=== PATIENT | female | born 1945 | race Caucasian/White ===

== ENCOUNTER 2021-07-24 15:20 | Outpatient (CLI) | payer MEDICARE, SELFPAY ==
--- NOTE | ~2021-07-24 | DEXA_ITS ---
Bone Density Report Name: RANDAL HANSON Age: 75 Sex: Female Ethnicity: White Date of : 1945 Indication: osteopenia; parental hip fracture; height loss; cancer; postmenopausal Referring Provider: ADDIE NUNEZ Study: Bone densitometry was performed. Exam Date: July 24, 2021 Accession number: [id number] Bone Density: Region BMD T-score Z-score Classification Femoral Neck (Left) 0.607 -2.2 0.0 Osteopenia Total Hip (Left) 0.765 -1.5 0.5 Osteopenia Femoral Neck (Right) 0.643 -1.9 0.3 Osteopenia Total Hip (Right) 0.815 -1.0 0.9 Normal Total Hip Mean 0.790 -1.3 0.7 Osteopenia World Health Organization criteria for BMD impression classify patients as: Normal (T-score at or above -1.0), Osteopenia (T-score between -1.0 and -2.5), or Osteoporosis (T-score at or below -2.5). 10-year Fracture Risk(1): Major Osteoporotic Fracture 26% Hip Fracture 17% Reported Risk Factors: [place] (), Neck BMD=0.607, BMI=20.8, parental fracture (1) FRAX(R) Version 3.08. Fracture probability calculated for an untreated patient. Fracture probability may be lower if the patient has received treatment. Previous Exams: Region Exam Age BMD T-score BMD Change BMD Change Date g/cm2 vs Baseline vs Previous Total Hip(Left) 07/24/2021 75 0.765 -1.5 -0.014 (-1.7%) -0.049 (-6.0%) 06/25/2016 70 0.814 -1.1 0.036 (4.6%)* 0.036 (4.6%)* 10/15/2013 67 0.778 -1.3 Total Hip(Right) 07/24/2021 75 0.815 -1.0 -0.054 (-6.2%) -0.081 (-9.1%) 06/25/2016 70 0.896 -0.4 0.027 (3.1%) 0.027 (3.1%) 10/15/2013 67 0.869 -0.6 *Denotes significance at 95% confidence level, LSC for Total Hip = 0.027 g/cm2 Clinical Information Provided by Patient: Parent has had a hip fracture Has used the following medications: Vitamin D, Calcium Has the following medical conditions: Cancer Patient maximum height was 61 Menopause Age: 48 No regular weight bearing exercise Drinks caffeinated beverages Onset of menses at age 12 Number of children 2 Impression: The patient has low bone mass, based on the Left Femoral Neck T-score. The patient has an estimated ten-year risk of hip fracture of 17% and an estimated ten-year risk of major fracture of 26%, based on the WHO FRAX algorithm. The patient has risk factors, including: parental hip fracture. The BMD for the Total Hip(Left) decreased, changing by -6.0% since the last DXA exam. The BMD for the Total Hip(Right) decreased, changing by -9.1% since
== END 2021-07-24 15:21 | disposition home or self-care (01) ==
PROVIDERS: PCP Family Medicine; Visit Provider Family Medicine
DX: M81.0 Age-related osteoporosis without current pathological fracture (principal); M85.852 Other specified disorders of bone density and structure, left thigh; M85.851 Other specified disorders of bone density and structure, right thigh
CPT/HCPCS: 77080

== ENCOUNTER 2021-11-13 15:29 | Outpatient (CLI) | payer MEDICARE, SELFPAY ==
[2021-11-13 20:15] LABS: Alanine Aminotransferase 19 U/L (6-35); Albumin Level 4.3 g/dL (3.5-5.1); Alkaline Phosphatase 98 U/L (38-126); Anion Gap 7 mmol/L (8-16); Aspartate Amino Transferase 35 U/L (14-36); Bilirubin,Total 0.5 mg/dL (0.2-1.3); Blood Urea Nitrogen 15 mg/dL (7-17); Calcium 9.5 mg/dL (8.4-10.2); Carbon Dioxide 27 mmol/L (22-30); Chloride 93 mmol/L (98-107); Estimated Glomerular Filt Rate > 60; Glucose 92 mg/dL (65-110); Potassium 5.2 mmol/L (3.4-5.0); Sodium 127 mmol/L (137-145)
[2021-11-13 21:08] LABS: Basophils Percent Auto 0.6 % (0.2-1.2); Eosinophils Absolute Auto 0.4 K/mm3 (0-0.3); Eosinophils Percent Auto 5.2 % (0-4.4); Hematocrit 34.9 % (37.0-47.0); Immature Granulocyte Absolute 0.02 K/mm3 (0.00-0.031); Immature Granulocyte Percent A 0.3 % (0-0.5); Lymphocytes Absolute Auto 3.12 K/mm3 (0.9-3.2); Lymphocytes Percent Auto 44.1 % (18.3-44.2); Mean Corpuscular HGB Conc 34.4 g/dl (32-36); Mean Corpuscular Hemoglobin 31.3 pg (26-34); Mean Corpuscular Volume 91.1 fl (80-100); Mean Platelet Volume 9.7 fl (7.4-10.4); Monocytes Absolute Auto 0.7 K/mm3 (0.1-0.6); Monocytes Percent Auto 9.8 % (2.6-8.5); Neutrophils Absolute Auto 2.8 K/mm3 (1.3-6.7); Platelet Count Result 230 k/mm3 (150-375); Red Blood Count 3.83 M/mm3 (4.2-5.4); Red Cell Distribution Width 14.3 % (11.5-14.5); White Blood Count 7.1 K/mm3 (4.5-10.0)
[2021-11-13 21:14] LABS: Vitamin B12 > 1000.0 pg/mL (239-931)
== END 2021-11-13 15:30 | disposition home or self-care (01) ==
LOC: ANHGOSHLAB 15:31
PROVIDERS: PCP Family Medicine; Visit Provider Family Medicine
DX: G25.81 Restless legs syndrome (principal); E03.9 Hypothyroidism, unspecified; D64.9 Anemia, unspecified
CPT/HCPCS: 36415; 80053; 82607; 84443; 85025

== ENCOUNTER 2022-08-20 13:49 | Outpatient (CLI) | payer MEDICARE, SELFPAY ==
[2022-08-20 19:23] LABS: Anion Gap 5 mmol/L (8-16); Blood Urea Nitrogen 16 mg/dL (7-17); Calcium 9.1 mg/dL (8.4-10.2); Carbon Dioxide 28 mmol/L (22-30); Chloride 95 mmol/L (98-107); Estimated Glomerular Filt Rate > 60; Glucose 100 mg/dL (65-110); Potassium 4.8 mmol/L (3.4-5.0); Sodium 128 mmol/L (137-145)
[2022-08-20 19:50] LABS: Thyroid Stimulating Hormone 0.209 uIU/mL (0.465-4.680)
== END 2022-08-20 13:50 | disposition home or self-care (01) ==
LOC: ANHGOSHLAB 13:50
PROVIDERS: PCP Family Medicine; Visit Provider Family Medicine
DX: E03.9 Hypothyroidism, unspecified (principal); E87.1 Hypo-osmolality and hyponatremia
CPT/HCPCS: 36415; 80048; 84443

== ENCOUNTER 2022-12-28 19:00 | Outpatient (NON) | payer MEDICARE, SELFPAY | END 2022-12-28 19:01 | disposition home or self-care (01) | LOC: ANHGOSHLAB 19:03 | PROVIDERS: PCP Family Medicine; Visit Provider Nurse Practitioner Family | DX: R39.9 Unspecified symptoms and signs involving the genitourinary system (principal) | CPT/HCPCS: 87086; 87088 ==

== ENCOUNTER 2023-04-16 00:57 | Day surgery (SDC) | payer MEDICARE, SELFPAY ==
[2023-03-29 10:17] VITALS: BMI 23.1
--- NOTE | 2023-04-12 13:58 | SUR.PREOP ---
Patient called regarding upcoming procedure. Reviewed preop instructions, appointment times, and procedure prep.
[2023-04-16 07:44] VITALS: BP 140/87; PULSE 100; RESP 16; TEMP 35.8; O2SAT 100; BMI 22.1
[2023-04-16] MEDS: LACTATED RINGERS 1,000 ML 150 ML IV CONT (08:02)
--- NOTE | 2023-04-16 09:43 | PM.HPGS ---
History of Present Illness History of Present Illness Consent: Risks, benefits, and alternatives have been discussed and questions answered. Patient agrees to proceed with procedure. Chief complaint: neoplasm screening Narrative: Marissa Hightower is a 77 year old female here for screening colonoscopy, last one in 2011 Review of Systems Constitutional: Constitutional: Denies headache(s) and Denies weakness Eyes: Eyes: Denies blurry vision ENT: Reports Normal hearing present, Denies headache(s) and Denies neck pain Cardiovascular: Cardiovascular: Denies chest pain and Denies dyspnea Respiratory: Respiratory: Denies dyspnea Gastrointestinal: Gastrointestinal: Reports no additional gastrointestinal complaints Genitourinary: Genitourinary: Denies dysuria Musculoskeletal: Musculoskeletal: Denies neck pain Integumentary/Breasts: Skin/Breast: Denies dry skin Neurologic: Reports Normal hearing present, Denies headache(s) and Denies weakness Psychiatric: Psychiatric: Denies anxiety Endocrine: Endocrine: Denies change in body appearance Hematologic/Lymphatic: Hematologic/Lymphatic: Denies easy bleeding Allergic/Immunologic: Allergic/Immunologic: Denies urticaria PMFSH Past Medical History Medical History (Reviewed 12/24/22 @ 14: by Shalonda Valdes MA) Age-related osteoporosis without current pathological fracture Anemia, Mediterranean Chemotherapy-induced neuropathy Depression Emphysema, unspecified Essential (primary) hypertension Hyperlipidemia, unspecified Hypothyroidism (acquired) Latex allergy status Major depressive disorder, single episode, unspecified Malignant neoplasm of upper lobe, left bronchus or lung Nicotine dependence, unspecified, in remission Papillomavirus as the cause of diseases classified elsewhere Tension-type headache, unspecified, not intractable Unspecified osteoarthritis, unspecified site Family History Family History (Reviewed 12/24/22 @ 14: by Shalonda Valdes MA) Father Family history of glaucoma Family history of aortic aneurysm Family history of dementia Mother Family history of elevated blood lipids Family history of dementia Sibling Family history of cardiovascular disease Family history of malignant neoplasm of breast in first degree relative Other Family history of malignant neoplasm of breast Social History Social History (Reviewed 12/24/22 @ 14: by Shalonda Valdes MA) Smoking packs per day: 1 Smoking cigarettes per day: 20.0 Years smoked: 38 Smoking pack-years: 38.00 Smoking status: Former smoker Tobacco type: cigarettes Smoking end date: 02/12/96 Alcohol intake: current Drinks per week: 6 Alcohol use details: BEER Substance use: never Substance use type: does not use Lack of Transportation: No Lack of Food: Never True Current Housing: I Have Housing Concerned About Future Housing: No Difficulty Paying Gas/Electric Bills: No Difficulty Paying for Meds: No Currently Unemployed: No Education: High School Diploma/GED Difficulty w/ Childcare or Family Care: No Living arrangements: with family Spiritual care concerns: No Meds Home Medications and Allergies Home Medications Medication Instructions Recorded Confirmed Type calcium carbonate 600 mg-vitamin 1 tablet PO BID 04/27/20 04/16/23 History D3 20 mcg (800 unit) chewable tablet (Caltrate 600 plus D) sertraline 100 mg tablet See Rx Instructions .Route 09/25/22 04/16/23 Rx .COMPLEX #90 tabs hydrocodone 5 mg-acetaminophen 325 1 tablet PO Q6H PRN pain #30 tabs 12/24/22 04/16/23 Rx mg tablet levothyroxine 100 mcg tablet 100 mcg PO DAILY #30 tabs 02/06/23 04/16/23 Rx (Synthroid) gabapentin 300 mg capsule 300 mg PO BID #180 caps 03/12/23 04/16/23 Rx ropinirole 0.25 mg tablet 0.25 mg PO QHS #90 tabs 03/12/23 04/16/23 Rx One Daily Women's 1 tab-cap PO DAILY 03/29/23 04/16/23 History mecobalamin (vitamin B12) 1,000 1,000
[2023-04-16 10:06] VITALS: BP 96/52; PULSE 62; RESP 14; O2SAT 100
[2023-04-16 10:16] VITALS: BP 124/65; PULSE 61; RESP 23; O2SAT 100
[2023-04-16 10:26] VITALS: BP 138/84; PULSE 62; RESP 17; O2SAT 100
--- NOTE | 2023-04-17 12:58 | WPDANESEPPF ---
Anes - Initial Pre Proc Eval Procedure: Operation Date: 04/16/23 09:00 Proposed Procedures p Colonoscopy - Hermes Presley MD Date/Time: 04/17/23 12:58 Surgeon: Hermes Presley MD Pre Op Diagnosis: neoplasm screening Patient Data Age: 77 Gender: F Height: 1.5 m Weight: 49.7 kg Last Vital Signs Temp 96.5 F L 04/16/23 07:44 Pulse 62 04/16/23 10:26 Resp 17 04/16/23 10:26 BP 138/84 04/16/23 10:26 Pulse Ox 100 04/16/23 10:26 O2 Del Method Room Air 04/16/23 10:26 Allergies Allergy/AdvReac Type Severity Reaction Status Date / Time Iodinated Contrast Media Allergy Intermediate vasculitis Verified 04/16/23 07:51 latex Allergy Intermediate Rash Verified 04/16/23 07:51 nitrofurantoin Allergy Intermediate Chills Verified 04/16/23 07:51 valacyclovir [From Valtrex] Allergy Intermediate angioedema Verified 04/16/23 07:51 Home Medications Medication Instructions Recorded Confirmed Type calcium carbonate 600 mg-vitamin 1 tablet PO BID 04/27/20 04/16/23 History D3 20 mcg (800 unit) chewable tablet (Caltrate 600 plus D) sertraline 100 mg tablet See Rx Instructions .Route 09/25/22 04/16/23 Rx .COMPLEX #90 tabs hydrocodone 5 mg-acetaminophen 325 1 tablet PO Q6H PRN pain #30 tabs 12/24/22 04/16/23 Rx mg tablet levothyroxine 100 mcg tablet 100 mcg PO DAILY #30 tabs 02/06/23 04/16/23 Rx (Synthroid) gabapentin 300 mg capsule 300 mg PO BID #180 caps 03/12/23 04/16/23 Rx ropinirole 0.25 mg tablet 0.25 mg PO QHS #90 tabs 03/12/23 04/16/23 Rx One Daily Women's 1 tab-cap PO DAILY 03/29/23 04/16/23 History mecobalamin (vitamin B12) 1,000 1,000 mcg PO DAILY 03/29/23 04/16/23 History mcg chewable tablet Patient hx anesthesia problems: none Family hx anesthesia problems: none Results Review: All pre-operative results and documents have been reviewed as part of the pre-operative evaluation. [facility] Past Medical History Medical History Age-related osteoporosis without current pathological fracture Anemia, Mediterranean Chemotherapy-induced neuropathy Depression Emphysema, unspecified Essential (primary) hypertension Hyperlipidemia, unspecified Hypothyroidism (acquired) Latex allergy status Major depressive disorder, single episode, unspecified Malignant neoplasm of upper lobe, left bronchus or lung Nicotine dependence, unspecified, in remission Papillomavirus as the cause of diseases classified elsewhere Tension-type headache, unspecified, not intractable Unspecified osteoarthritis, unspecified site Family History Family History (Reviewed 12/24/22 @ 14: by Shalonda Valdes MA) Father Family history of glaucoma Family history of aortic aneurysm Family history of dementia Mother Family history of elevated blood lipids Family history of dementia Sibling Family history of cardiovascular disease Family history of malignant neoplasm of breast in first degree relative Other Family history of malignant neoplasm of breast Social History Social History Smoking packs per day: 1 Smoking cigarettes per day: 20.0 Years smoked: 38 Smoking pack-years: 38.00 Smoking status: Former smoker Tobacco type: cigarettes Smoking end date: 02/12/96 Alcohol intake: current Drinks per week: 6 Alcohol use details: BEER Substance use: never Substance use type: does not use Lack of Transportation: No Lack of Food: Never True Current Housing: I Have Housing Concerned About Future Housing: No Difficulty Paying Gas/Electric Bills: No Difficulty Paying for Meds: No Currently Unemployed: No Education: High School Diploma/GED Difficulty w/ Childcare or Family Care: No Living arrangements: with family Spiritual care concerns: No Anes - Eval Final PreProcedure Day of Procedure 04/17/23 12:58 Patient weight: norm
== END 2023-04-16 10:33 | disposition home or self-care (01) ==
PROVIDERS: PCP Family Medicine; Visit Provider Internal Medicine Gastroenterology
PROC: 0DJD8ZZ Inspection of Lower Intestinal Tract, Via Natural or Artificial Opening Endoscopic (ICD-10-PCS; CPT 45378; principal; 2023-04-16 09:00)
DX: Z12.11 Encounter for screening for malignant neoplasm of colon (principal); K64.8 Other hemorrhoids; E03.9 Hypothyroidism, unspecified; F32.9 Major depressive disorder, single episode, unspecified; E78.5 Hyperlipidemia, unspecified; M81.0 Age-related osteoporosis without current pathological fracture; Z87.891 Personal history of nicotine dependence; Z79.891 Long term (current) use of opiate analgesic
CPT/HCPCS: G0121; J2704; J7120

== ENCOUNTER 2023-07-27 00:46 | Observation (INO) | payer MEDICARE, SELFPAY ==
[2023-07-27] VITALS (19 sets, daily range): BP systolic 117–155; BP diastolic 56–85; PULSE 58–76; RESP 15–21; TEMP 36.3–37.2; O2SAT 95–100; BMI 23.5
--- NOTE | 2023-07-27 | ECHO_ITS ---
Patient Info Name: Marissa Hightower Age: 77 years : 1945 Gender: Female Ht: 59 in Wt: 119 lbs BSA: 1.51 m2 HR: 62 bpm BP: 151 / 69 mmHg Technical Quality: Good Exam Date: 07/27/2023 11:10 AM Exam Location: Echo Lab Patient Status: Inpatient Admit Date: 07/27/2023 Staff Ordering Physician: Amalia Voss APRN Nurse College: Benedicto Alas RDCS Attending Provider: Caleb Mackey MD Referring Physician: Bipin STRANGE; Exam Type: CA echo doppler w bubble study Study Info Indications - syncope Complete two-dimensional, color flow and Doppler transthoracic echocardiogram is performed with agitated saline. Contrast/Agitated Saline Contrast/Ag. Saline: Agitated Saline Amount: 20.00 ml Existing IV Access: Yes IV Access Condition: patent with no signs of infiltration Summary 1. Left ventricular chamber dimension is normal. 2. Left ventricular systolic function is normal, estimated at 60-65%. 3. The left ventricular diastolic function is abnormal. 4. E/e' 11 is mildly elevated. 5. There is mild aortic valve sclerosis. 6. There is trace aortic valve regurgitation. 7. There is trace tricuspid valve regurgitation. 8. Mild pulmonary hypertension, estimated pulmonary arterial systolic pressure is 41 mmHg. Left Ventricle E/e' 11 is mildly elevated. Left ventricular chamber dimension is normal. Left ventricular systolic function is normal, estimated at 60-65%. The left ventricular diastolic function is abnormal. Right Ventricle Right ventricular systolic function is normal and with normal TAPSE 1.8 cm. Right ventricular chamber dimension is normal. Left Atria Left atrial chamber dimension is normal. Right Atria Right atrial chamber dimension is normal. Atrial Septum Agitated saline injection with and without valsalva maneuver opacified right side cardiac chambers without shunt to left side cardiac chambers. Intact interatrial septum visualized by 2D and agitated saline imaging. Aortic Valve The aortic valve is trileaflet. There is mild aortic valve sclerosis. There is no aortic valve stenosis. There is trace aortic valve regurgitation. Pulmonic Valve There is no pulmonic regurgitation. Mitral Valve There is no mitral valve stenosis. There is no mitral valve regurgitation. Tricuspid Valve There is trace tricuspid valve regurgitation. Mild pulmonary hypertension, estimated pulmonary arterial systolic pressure is 41 mmHg. Pericardium/Pleural There is no pericardial effusion. Inferior Vena Cava Normal inferior vena cava with >50% collapse upon inspiration consistent with normal right atrial pressure, 5 mmHg. Aorta The aortic root size at the sinus of Valsalva is normal. Left Ventricular Outflow Tract Name Value Normal LVOT 2D LVOT Diameter 1.9 cm LVOT Doppler LVOT Peak Gradient 6 mmHg LVOT Mean Gradient 3 mmHg LVOT VTI 26 cm LVOT VTI/AV VTI Ratio 0.8 LVOT Stroke Volume 77 ml LVOT CO 4.3 l/min LVOT CI
--- NOTE | ~2023-07-27 | CT_ITS ---
EXAMINATION: CTA brain carotid DATE: 07/29/2023 01:39 INDICATION: Syncope. TECHNIQUE: Computed tomographic angiography (CTA) of the head was performed without and with 100 mL O [id number] intravenous contrast. CTA of the neck was performed with intravenous contrast. Automated exposure control and iterative reconstruction technique were employed. The dose-length product was 1 487.70 mGy-cm. Maximum intensity projection and volume rendered 3D-reconstructions were created by demetrius connolly technologist on a separate workstation. COMPARISON: Head CT 07/27/2023 FINDINGS: HEAD CTA: There is a small old infarct in right cerebellum. There is an old infarct in the left front al lobe. There is an old infarct in left parietal lobe. There are scattered areas of low attenuation in the cerebral white matter. There is no intracranial hemorrhage, acute infarction, or abnormal intr acranial mass lesion. The ventricles are normal in size. There is mild mucosal thickening in the para nasal sinuses. There are small bilateral mastoid effusions. There are likely changes of ocular lens r eplacement surgeries. The left vertebral artery is dominant. There is no significant stenosis of basi lar artery or the posterior cerebral arteries. There is no significant stenosis of the intracranial i nternal carotid arteries or anterior or middle cerebral arteries. Anterior communicating artery is no rmal. The posterior communicating arteries are normal. There is no aneurysm. NECK CTA: Emphysema is noted. There are no pathologically enlarged lymph nodes. There is moderate eileen nosis of proximal left vertebral artery. There is plaque in the proximal internal carotid arteries. T here is 0% stenosis of the proximal right internal carotid artery relative to normal distal artery sarah men diameter (NASCET criteria). There is 0% stenosis of the proximal left internal carotid artery rel ative to normal distal artery lumen diameter. There is severe cervical spondylosis. There are changes of posterior fusion procedure from C2 to T2. There are healing/healed fractures of the spinous proce sses of C7, T1, and T2. There is a healing fracture of right second rib. IMPRESSION: 1. 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 2. Mild nonspecific cerebral white matter disease, which likely represents chronic small vessel [place] disease. 3. No aneurysm or significant intracranial arterial stenosis. 4. 0% stenosis of the proximal internal carotid arteries relative to normal distal artery lumen diame ters (NASCET criteria). Reviewed, dictated and finalized at location E. IMPRESSION: 1. Old infarcts in the right cerebellum, left frontal lobe, and left parietal l obe. 2. 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 3. No aneurysm or significant intracranial arterial stenosis. 4. 0% stenosis of the proximal internal carotid arteries relative to normal dis faustina artery lumen diameters (NASCET criteria).
--- NOTE | ~2023-07-27 | MR_ITS ---
EXAMINATION: MR brain/brain stem wo con DATE: 07/27/2023 13:08 INDICATION: Stroke with unresponsiveness syncopal episode and drowsiness TECHNIQUE: Magnetic resonance imaging (MRI) of the brain and brainstem was performed without intraven ous contrast. Sequences included sagittal and axial T1-weighted SE, axial diffusion-weighted FS SE, a xial T2*-weighted GRE, axial T2-weighted FLAIR, and axial T2-weighted FSE. Postcontrast axial and cor onal T1-weighted SE was obtained. Apparent diffusion coefficient (ADC) maps were created. COMPARISON: CT dated 07/27/2023 FINDINGS: Magnetic field artifact at the posterior craniocervical junction likely related to an instrumented ce rvical posterior spinal fusion. Small region of encephalomalacia in the left frontal lobe consistent with chronic infarct. There are no areas of restricted diffusion to suggest acute infarction. No intr acranial hemorrhage or abnormal intracranial mass lesion. There are scattered areas of nonspecific in creased T2-weighted signal intensity in the cerebral white matter, predominantly involving the deep a nd periventricular white matter. There are no intraparenchymal signal abnormalities seen on the other pulse sequences. The ventricles are symmetric and normal in size. There are no abnormal extra-axial fluid collections. Flow voids are seen in the cerebral arteries on the T2-weighted sequences consiste nt with their expected patency. Changes of bilateral intraocular lens replacement. Mucosal thickening in the paranasal sinuses, moderate in the left maxillary sinus and mild in the bilateral ethmoid sin uses. Visualized orbits and soft tissues are unremarkable. IMPRESSION: 1. Small left frontal lobe infarct. No acute intracranial process. 2. Mild scattered nonspecific periventricular predominant white matter T2 hyperintensity which is wit hin normal limits for age and likely sequela of chronic small vessel ischemic disease. Reviewed, dictated and finalized at location A. IMPRESSION: 1. Small left frontal lobe infarct. No acute intracranial process. 2. Mild scattered nonspecific periventricular predominant white matter T2 hyper intensity which is within normal limits for age and likely sequela of chronic s mall vessel ischemic disease.
--- NOTE | ~2023-07-27 | XR_ITS ---
XR chest 1V portable DATE: 07/27/2023 05:42 INDICATION: Syncope TECHNIQUE: Portable upright AP chest on 07/27/2023 at 0538 hours COMPARISON: None FINDINGS: Normal heart size. There is extensive thoracic aortic calcification and thoracic aortic unf olding. No hilar or mediastinal enlargement is noted. No pulmonary consolidation, pulmonary vascular congestion, pleural effusion or pneumothorax is eviden t. Bilateral pedicle screws and rods are noted in the cervicothoracic area and lower thoracic and lumbar region. Thoracic dextroscoliosis. Suture anchors of left humeral head. Evidence of bilateral rotator cuff atrophy. Diffuse osteopenia. IMPRESSION: No active cardiopulmonary disease Aortic atherosclerosis Reviewed, dictated and finalized at location A.
--- NOTE | ~2023-07-27 | CT_ITS ---
EXAMINATION: CT brain wo con DATE: 07/27/2023 07:57 INDICATION: Unresponsive. Syncope. TECHNIQUE: Computed tomography (CT) of the head was performed without intravenous contrast. The mA wa s adjusted according to patient size. Iterative reconstruction technique was employed. Exam dose: 52 9.67 mGy-cm total exam DLP. COMPARISON: 02/10/2018 CT brain FINDINGS: There is hypoattenuation of the left frontal lobe which may be due to remote cerebrovascula r accident. Less likely consideration would be edema associated with a metastasis. Repeat examination with IV contrast material ureteral or MR brain examination would be helpful for differentiating thes e possibilities. Small chronic right cerebellar hemispheric infarct. No intracranial mass lesion or hemorrhage or recent cerebrovascular accident is evident. No subdural or epidural hematoma is detected. Bilateral carotid siphon internal carotid artery calcifications. There is nonspecific diminished atte nuation the cerebral white matter, likely due to chronic small vessel ischemic changes. No skull fracture. Mastoid air cells and included paranasal sinuses are unremarkable. IMPRESSION: Focal asymmetric diminished attenuation of the left frontal lobe which may be due to rem ote cerebrovascular accident; less likely would be edema, possibly associated with metastasis. Consid er further evaluation with CT examination with IV contrast material or MR brain scan as clinically ap propriate Small chronic right cerebellar hemispheric infarct Reviewed, dictated and finalized at Location A. Reviewed, dictated and finalized at location A. IMPRESSION: Focal asymmetric diminished attenuation of the left frontal lobe w hich may be due to remote cerebrovascular accident; less likely would be edema, possibly associated with metastasis. Consider further evaluation with CT exami nation with IV contrast material or MR brain scan as clinically appropriate Small chronic right cerebellar hemispheric infarct
--- NOTE | ~2023-07-27 | US_ITS ---
EXAMINATION: US carotid duplex BI DATE: 07/27/2023 09:02 INDICATION: Syncope TECHNIQUE: Grayscale, color Doppler, and pulsed Doppler images of the cervical carotid arteries were obtained. The degree of vessel stenosis is placed in one of the following categories: normal, <50%, 5 0-69%, >=70% but less than near-occlusion, near-occlusion, or total occlusion. Note that percent sten osis relative to normal distal artery lumen diameter is indirectly measured from velocity measurement s as described by Jeromy, et al. Radiology 2003; 229:340-346. COMPARISON: None. FINDINGS: RIGHT: The right common carotid artery (CCA) peak systolic velocity (PSV) is 72 cm/s. The right internal car otid artery (ICA) PSV is 59 cm/s. The right ICA end-diastolic velocity (EDV) is 19 cm/s. The right IC A/CCA PSV ratio is 0.8. Grayscale and color Doppler images yield an estimate of <50% diameter reducti on from plaque in the ICA. The external carotid artery (ECA) PSV is 47 cm/s. There is antegrade flow in the right vertebral artery. Bunny sign arterial waveform at the left vertebral artery which sugg ests a pre-subclavian steal hemodynamically significant stenosis at the more proximal right subclavia n artery. LEFT: The left CCA PSV is 78 cm/s. The left ICA PSV is 71 cm/s. The left ICA EDV is 22 cm/s. The left ICA/C CA PSV ratio is 0.9. Grayscale and color Doppler images yield an estimate of <50% diameter reduction from plaque in the ICA. The ECA PSV is 52 cm/s. There is antegrade flow in the left vertebral artery. IMPRESSION: 1. <50% stenosis in the right internal carotid artery. 2. <50% stenosis in the left internal carotid artery. 3. Left vertebral arterial waveform suggesting a pre-subclavian steal hemodynamically significant eileen nosis at the right subclavian artery. Correlate with bilateral brachial artery pressures in the consi susanna carotid CT angiogram for further evaluation. Reviewed, dictated and finalized at location A. IMPRESSION: 1. <50% stenosis in the right internal carotid artery. 2. <50% stenosis in the left internal carotid artery. 3. Left vertebral arterial waveform suggesting a pre-subclavian steal hemodynam ically significant stenosis at the right subclavian artery. Correlate with bila teral brachial artery pressures in the consider carotid CT angiogram for furthe r evaluation.
--- NOTE | 2023-07-27 01:20 | ECG_ITS ---
Test Date: 2023-07-27 00:53:35 Measurements Intervals [place] Rate: 75 P: 38 WA: 225 QRS: 16 QRSD: 80 T: 48 QT: 405 QTc: 454 Interpretive Statements SINUS RHYTHM WITH FIRST DEGREE AV BLOCK No previous ECG available for comparison Electronically Signed On 07-27-2023 15:40:10 CDT by Guero Bui M.D.
[2023-07-27 01:45] LABS: Basophils Percent Auto 0.3 % (0.2-1.2); Eosinophils Absolute Auto 0.2 K/mm3 (0-0.3); Hematocrit 34.9 % (37.0-47.0); Immature Granulocyte Absolute 0.03 K/mm3 (0.00-0.031); Immature Granulocyte Percent A 0.5 % (0-0.5); Lymphocytes Absolute Auto 1.16 K/mm3 (0.9-3.2); Lymphocytes Percent Auto 19.1 % (18.3-44.2); Mean Corpuscular HGB Conc 34.4 g/dl (32-36); Mean Corpuscular Hemoglobin 30.8 pg (26-34); Mean Corpuscular Volume 89.7 fl (80-100); Mean Platelet Volume 8.8 fl (7.4-10.4); Monocytes Absolute Auto 0.8 K/mm3 (0.1-0.6); Monocytes Percent Auto 12.3 % (2.6-8.5); Neutrophils Absolute Auto 3.9 K/mm3 (1.3-6.7); Neutrophils Percent Auto 64.8 % (45.5-73.1); Platelet Count Result 162 k/mm3 (150-375); Red Blood Count 3.89 M/mm3 (4.2-5.4); Red Cell Distribution Width 13.4 % (11.5-14.5); White Blood Count 6.1 K/mm3 (4.5-10.0)
[2023-07-27] MEDS: SODIUM CHLORIDE 0.9% IV 1,000 ML 999 ML IV CONT ×2 (01:53→06:06)
[2023-07-27 01:59] LABS: Alanine Aminotransferase 15 U/L (6-35); Albumin Level 4.2 g/dL (3.5-5.1); Alkaline Phosphatase 82 U/L (38-126); Anion Gap 6 mmol/L (4-12); Aspartate Amino Transferase 26 U/L (14-36); Bilirubin,Total 0.5 mg/dL (0.2-1.3); Blood Urea Nitrogen 12 mg/dL (7-17); Calcium 9.2 mg/dL (8.4-10.2); Carbon Dioxide 25 mmol/L (22-30); Chloride 98 mmol/L (98-107); Estimated Glomerular Filt Rate > 60; Glucose 93 mg/dL (65-110); Potassium 3.8 mmol/L (3.4-5.0); Sodium 129 mmol/L (137-145)
[2023-07-27 02:07] LABS: Lactic Acid Reflex 0.9 mmol/L (0.7-2.0)
[2023-07-27 02:15] LABS: Ethanol < 10 mg/dL (<10); Magnesium 1.8 mg/dL (1.6-2.3)
[2023-07-27 02:28] LABS: NT Pro B Type Natriuretic Pept 342 pg/mL (19.9-100); Troponin I < 0.012 ng/mL (0.000-0.034)
[2023-07-27 02:40] LABS: Influenza A QL RT-PCR Negative (Negative); Influenza B QL RT-PCR Negative (Negative); RSV RNA, RT-PCR Negative (Negative); SARS-CoV-2 RNA PCR Negative (Negative)
[2023-07-27 03:03] LABS: Appearance Urine Cloudy (Clear); Bacteria Urine 4+ /hpf; Bilirubin Urine Negative (Negative); Blood Urine Trace (Negative); Color Urine Yellow (Yellow); Glucose Urine UA Negative (Negative); Ketones Urine Negative (Negative); Leukocyte Esterase Ur 3+ LEU/UL (Negative); Need Manual Microscopic Reviewed; Nitrate Urine Positive (Negative); Non Pathogenic Casts 0-2; Protein Urine Negative (Negative); Specific Grav Ur 1.005 (1.001-1.035); Squamous Epithelial Cell Urine None Seen /hpf (Few); Urobilinogen Urine 0.2 mg/dL (<2.0); WBC Urine >100 /hpf (0-3)
[2023-07-27 03:04] LABS: Add Urine Microscopic? YES
--- NOTE | 2023-07-27 05:08 | ED.GENADULT ---
HPI - General Adult General Chief complaint: Arrhythmia/Palpitations Stated complaint: weakness Time Seen by Provider: 07/27/23 01:25 History of Present Illness HPI narrative: This is a 77-year-old female presenting after period of unresponsiveness. Patient spent the day out with her family. When she got home she took her nighttime doses of gabapentin and ropinirole. she was sitting in her arm chair and fell asleep. Her son tried to wake her up and he was unable to. At that time she was pale clammy and diaphoretic. After he was not able to arouse her he called EMS who found her to have a blood pressure of 60/40. A heart rate in the 40s. They gave the patient atropine and fluids with improvement in vital signs. Rhythm at that time was sinus bradycardia. At this time the patient says that she feels improved. She does not recall the events that led her arriving in the ED. she is denying fevers chills chest pain difficulty breathing or abdominal pain. She does note burning when she urinates. No palpitations lightheadedness. Related Data Home Medications Medication Instructions Recorded Confirmed calcium carbonate 600 mg-vitamin 1 tablet PO BID 04/27/20 06/27/23 D3 20 mcg (800 unit) chewable tablet (Caltrate 600 plus D) One Daily Women's 1 tab-cap PO DAILY 03/29/23 06/27/23 mecobalamin (vitamin B12) 1,000 1,000 mcg PO DAILY 03/29/23 06/27/23 mcg chewable tablet estradiol 0.01% (0.1 mg/gram) vaginal 04/29/23 06/27/23 vaginal cream Allergies Allergy/AdvReac Type Severity Reaction Status Date / Time Iodinated Contrast Media Allergy Intermediate vasculitis Verified 06/27/23 14:51 latex Allergy Intermediate Rash Verified 06/27/23 14:51 nitrofurantoin Allergy Intermediate Chills Verified 06/27/23 14:51 valacyclovir [From Valtrex] Allergy Intermediate angioedema Verified 06/27/23 14:51 [facility] Past Medical History Medical History Age-related osteoporosis without current pathological fracture Anemia, Mediterranean Chemotherapy-induced neuropathy Depression Emphysema, unspecified Essential (primary) hypertension Hyperlipidemia, unspecified Hypothyroidism (acquired) Latex allergy status Major depressive disorder, single episode, unspecified Malignant neoplasm of upper lobe, left bronchus or lung Nicotine dependence, unspecified, in remission Papillomavirus as the cause of diseases classified elsewhere Tension-type headache, unspecified, not intractable Unspecified osteoarthritis, unspecified site Family History Family History Father Family history of glaucoma Family history of aortic aneurysm Family history of dementia Mother Family history of elevated blood lipids Family history of dementia Sibling Family history of cardiovascular disease Family history of malignant neoplasm of breast in first degree relative Other Family history of malignant neoplasm of breast Social History Social History Smoking packs per day: 1 Smoking cigarettes per day: 20.0 Years smoked: 38 Smoking pack-years: 38.00 Smoking status: Former smoker Tobacco type: cigarettes Smoking end date: 02/12/96 Alcohol intake: current Drinks per week: 6 Alcohol use details: BEER Substance use: never Substance use type: does not use Lack of Transportation: No Lack of Food: Never True Current Housing: I Have Housing Concerned About Future Housing: No Difficulty Paying Gas/Electric Bills: No Difficulty Paying for Meds: No Currently Unemployed: No Education: High School Diploma/GED Difficulty w/ Childcare or Family Care: No Living arrangements: with family Spiritual care concerns: No Exam Narrative: APPEARANCE: No apparent distress. A&O x4 Head: atraumatic. EYES: EOMI, NOSE: Atraumatic NECK: Trachea midline RESPIRA
[2023-07-27 05:13] LABS: Troponin I < 0.012 ng/mL (0.000-0.034)
[2023-07-27 08:36] LABS: Amphetamine Screen Urine Negative (Negative); Barbiturate Screen Urine Negative (Negative); Benzodiazepines Screen Urine Negative (Negative); Cannabinoid Screen Urine Negative (Negative); Cocaine Screen Urine Negative (Negative); Methadone Screen Urine Negative (Negative); Opiate Screen Urine Negative (Negative); Phencyclidine Screen Urine Negative (Negative)
--- NOTE | 2023-07-27 09:39 | PC.NURSE ---
Addendum entered by Brandon Carbajal RN 07/27/23 09:58: NEGRO Lamb had contacted RN mitigation supervisor regarding the appropriateness of the patient on a telemetry floor d/t adjuncts such as atropine and IVF needed in the field for low bp and heart rate. Amalia Voss NP, informed and to bedside to evaluate the patient to determine if appropriate to go to telemetry or if needing a higher level of care. irwin Bernard RN contacted this RN and stated the floor would not take report. Explained that BAG FILLER MACHINE OPERATOR is reevaluating at this time due to safety concerns regarding medical floor. After evaluation in the ED, HONEY Voss states the pt is appropriate for the telemetry floor and may proceed with admission. NEGRO Lamb updated and states the ED has been notified and the patient is enroute to the floor. Original Note: delay in care d/t RN on floor not willing to take report on pt. will not take pt until assessed by floor provider. clerical warehouse worker aware
--- NOTE | 2023-07-27 09:49 | PC.NURSE ---
Nurse in ER attempting to call report for patient who was unresponsive, with a heart rate of 40, bp 60/40s & given IV atropine within 12 hours of being treated. Floor nurse requested Crew Mess Attendant review patient's appropriateness for admission to MS v IMU. ER nurse made aware & Crew Mess Attendant made aware. Provider assessed patient in the room & cleared for admit to MS unit.
--- NOTE | 2023-07-27 09:56 | PCPTNOTE ---
per status board, pt in room 251; discussed with RN Donna, they just received report and pt is not yet arrived to the floor; She stated pt had coded and to HOLD PT until testing completed and pt stabilized. Will follow up tomorrow.
--- NOTE | 2023-07-27 10:16 | PC.NURSE ---
This patient, Marissa Hightower, was admitted to 2 Medical Room 251-01. Patient/family oriented to hospital policies and general routines including ID bracelet, bed and alarms, visiting hours, pain management, procedures, bathroom and other care routines, personal items, smoking policy, room service/diet, and visiting hours. Information on how to activate the Rapid Response Team has been discussed. Patient/Family are encouraged to report perceived risks to care and to ask questions if they do not understand what they are told or what they should do.
[2023-07-27 10:47] LABS: Cholesterol 217 mg/dL (0-200); HDL Direct 54 mg/dL; Triglycerides 69 mg/dL (<150)
[2023-07-27 10:59] LABS: LDL Cholesterol Direct 142 mg/dL
[2023-07-27 11:04] LABS: Hemoglobin A1C 5.4 % (<5.7)
[2023-07-27 11:18] LABS: Thyroid Stimulating Hormone 0.024 uIU/mL (0.465-4.680)
[2023-07-27] MEDS: LORazepam INJ (*CRX) 2 MG/ML VIAL 1 MG IV PUSH (12:01)
--- NOTE | 2023-07-27 13:45 | PM.IMHP ---
H&P: HPI History of Present Illness Date/Time: 07/27/23 13:45 Chief Complaint: Syncope/Nausea Narrative: Patient is pleasant 77-year-old female worth was brought to the emergency department via EMS after family reported she was not responding, slumped over in chair and making heavy noises like she was going to vomit. EMS was called and per medical record she was severely hypotensive and bradycardia, was given atropine and IV fluid resuscitation prior to arrival. Upon arrival to the emergency department patient was responsive and states she feels better however did not recall any events leading up to her arrival to the emergency department. Patient has a past medical history of hypothyroidism, HLD, HTN, osteoporosis, and malignant neoplasm of the lungs currently in remission. Initial findings in the ED showed a UA nitrate and leukocytes positive consistent with UTI patient also reported pain with urination, NA of 129 which appears chronic her last admissions, negative troponin, BNP mildly elevated at 342 and chest x-ray showing no acute cardiopulmonary disease. Patient reported nausea prior to episode but denied CP, SOB, vomiting, fever or chills. Family at bedside did report incontinence of urine during this episode. Upon assessment patient was alert and oriented following all commands with full strength and ROM BUE and BLE, BP responded well to fluid resuscitation, HR [address]. Ordered a stat CT head that showed Focal asymmetric diminished attenuation of the left frontal lobe which may be due to remote cerebrovascular accident; less likely would be edema, possibly associated with metastasis and Small chronic right cerebellar hemispheric infarct. MRI is pending, will also get Echo, and carotids. Patient has allergy to contrast dye however reports mild itching if CTA is needed will pre-medicate. Patient was admitted to the medical unit on continuous cardiac monitoring with consult to neurology. Review of Systems Review of Systems: All systems reviewed & are unremarkable except as noted in HPI and below PMFSH Past Medical History Medical History Age-related osteoporosis without current pathological fracture Anemia, Mediterranean Chemotherapy-induced neuropathy Depression Emphysema, unspecified Essential (primary) hypertension Hyperlipidemia, unspecified Hypothyroidism (acquired) Latex allergy status Major depressive disorder, single episode, unspecified Malignant neoplasm of upper lobe, left bronchus or lung Nicotine dependence, unspecified, in remission Papillomavirus as the cause of diseases classified elsewhere Tension-type headache, unspecified, not intractable Unspecified osteoarthritis, unspecified site Family History Family History Father Family history of glaucoma Family history of aortic aneurysm Family history of dementia Mother Family history of elevated blood lipids Family history of dementia Sibling Family history of cardiovascular disease Family history of malignant neoplasm of breast in first degree relative Other Family history of malignant neoplasm of breast Social History Social History Smoking packs per day: 1 Smoking cigarettes per day: 20.0 Years smoked: 38 Smoking pack-years: 38.00 Smoking status: Former smoker Tobacco type: cigarettes Smoking end date: 02/12/96 Alcohol intake: current Drinks per week: 6 Alcohol use details: BEER Substance use: never Substance use type: does not use Do You Feel Safe in your Home?: Yes Lack of Transportation: No Lack of Food: Never True Current Housing: I Have Housing Concerned About Future Housing: No Difficulty Paying Gas/Electric Bills: No Difficulty Paying for Meds: No Currently Unemployed: No Education: High School Diploma/GED
[2023-07-27] MEDS: CYANOCOBALAMIN 1,000 MCG TABLET 1000 MCG PO (14:52)
[2023-07-27] MEDS: ASPIRIN 81 MG ENTERIC TABLET PO (14:52)
[2023-07-27] MEDS: ATORVASTATIN 40 MG TABLET PO (14:52)
[2023-07-27] MEDS: SERTRALINE HCL 50 MG TABLET 100 MG PO (14:52)
[2023-07-27] MEDS: ENOXAPARIN 40 MG/0.4 ML SYRINGE SUB-Q (14:53)
[2023-07-27] MEDS: GABAPENTIN 300 MG CAPSULE 600 MG PO (17:14)
[2023-07-27] MEDS: CALCIUM/VITAMIN D 500 MG/5 MCG (200 I.U.) TABLET PO (17:15)
[2023-07-27] MEDS: rOPINIRole HCL 0.5 MG TABLET PO (20:20)
[2023-07-28] VITALS (11 sets, daily range): BP systolic 123–176; BP diastolic 60–94; PULSE 59–76; RESP 18–20; TEMP 36.4–37; O2SAT 95–99
[2023-07-28 04:58] LABS: Hematocrit 32.6 % (37.0-47.0); Hemoglobin 11.1 g/dL (12.0-15.0); Mean Corpuscular Hemoglobin 30.6 pg (26-34); Mean Corpuscular Volume 89.8 fl (80-100); Mean Platelet Volume 8.8 fl (7.4-10.4); Platelet Count Result 176 k/mm3 (150-375); Red Blood Count 3.63 M/mm3 (4.2-5.4); Red Cell Distribution Width 13.5 % (11.5-14.5); White Blood Count 4.8 K/mm3 (4.5-10.0)
[2023-07-28 05:12] LABS: Alanine Aminotransferase 13 U/L (6-35); Albumin Level 3.4 g/dL (3.5-5.1); Alkaline Phosphatase 61 U/L (38-126); Anion Gap 5 mmol/L (4-12); Aspartate Amino Transferase 21 U/L (14-36); Bilirubin,Total 0.4 mg/dL (0.2-1.3); Blood Urea Nitrogen 8 mg/dL (7-17); Calcium 8.8 mg/dL (8.4-10.2); Carbon Dioxide 23 mmol/L (22-30); Chloride 106 mmol/L (98-107); Estimated Glomerular Filt Rate > 60; Glucose 92 mg/dL (65-110); Potassium 4.1 mmol/L (3.4-5.0); Sodium 134 mmol/L (137-145)
[2023-07-28] MEDS: LEVOTHYROXINE SODIUM 75 MCG TABLET PO (06:13)
[2023-07-28] MEDS: ASPIRIN 81 MG ENTERIC TABLET PO (09:04)
[2023-07-28] MEDS: CALCIUM/VITAMIN D 500 MG/5 MCG (200 I.U.) TABLET PO ×2 (09:04→17:16)
[2023-07-28] MEDS: SERTRALINE HCL 50 MG TABLET 100 MG PO (09:05)
[2023-07-28] MEDS: ATORVASTATIN 40 MG TABLET PO (09:05)
[2023-07-28] MEDS: GABAPENTIN 300 MG CAPSULE 600 MG PO ×2 (09:05→17:15)
[2023-07-28] MEDS: CYANOCOBALAMIN 1,000 MCG TABLET 1000 MCG PO (09:05)
[2023-07-28] MEDS: ENOXAPARIN 40 MG/0.4 ML SYRINGE SUB-Q (09:06)
--- NOTE | 2023-07-28 09:11 | WPDNEURCNPN ---
Assessment and Plan Assessment and plan (1) Stroke: Code(s): I63.9 - Cerebral infarction, unspecified Status: Acute (2) Syncopal episodes: Code(s): R55 - Syncope and collapse Status: Acute (3) UTI (urinary tract infection): Code(s): N39.0 - Urinary tract infection, site not specified Status: Acute (4) Hyperlipidemia, unspecified: Code(s): E78.5 - Hyperlipidemia, unspecified Status: Acute (5) Essential (primary) hypertension: Code(s): I10 - Essential (primary) hypertension Status: Acute Plan Marissa Hightower is a 77 year old female with a history of HLD, HTN, hypothyroidism, lung cancer, COPD presenting due to unresponsiveness. She was ultimately found to have UTI. CT head was obtained which showed area of hypoattenuation in the L frontal lobe, concerning for prior stroke vs metastasis. MRI brain was obtained which showed old infarct in the L frontal lobe which is likely an incidental finding. Carotid patent but there was significant stenosis of R subclavian artery which can cause syncope. Echo negative for bubble study. - If able, would obtain CTA brain/carotid - Start Aspirin 81mg daily - Goal LDL is < 70; recommend starting atorvastatin 40mg daily - Outpatient vascular referral for R subclavian stenosis - Given episode of unresponsive I did recommend no driving or operating heavy machinery until event free for at least 6 months Consult date: 07/28/23 Reason for consult: Concern for stroke HPI: Marissa Hightower is a 77 year old female with a history of HLD, HTN, hypothyroidism, lung cancer, COPD presenting due to unresponsiveness. Patient was found by family slumped over in chair. EMS was called and patient was severely hypotensive and bradycardic. Patient was taken to [place] ED where she had improved. Her UA was suggestive of UTI. CT head was obtained which showed area of hypoattenuation in the L frontal lobe, concerning for prior stroke vs metastasis. MRI brain was obtained which showed old infarct in the L frontal lobe. Carotid Doppler study showed <50% stenosis in bilateral ICA but also suggestive of pre-subclavian steal due to significant stenosis of R subclavian artery. Echo with bubble study was negative for shunt. LDL is 142 and A1c is 5.4 from this admission. Review of Systems Review of Systems: All systems reviewed & are unremarkable except as noted in HPI and below PMFSH Past Medical History Medical History Age-related osteoporosis without current pathological fracture Anemia, Mediterranean Chemotherapy-induced neuropathy Depression Emphysema, unspecified Essential (primary) hypertension Hyperlipidemia, unspecified Hypothyroidism (acquired) Latex allergy status Major depressive disorder, single episode, unspecified Malignant neoplasm of upper lobe, left bronchus or lung Nicotine dependence, unspecified, in remission Papillomavirus as the cause of diseases classified elsewhere Tension-type headache, unspecified, not intractable Unspecified osteoarthritis, unspecified site Family History Family History Father Family history of glaucoma Family history of aortic aneurysm Family history of dementia Mother Family history of elevated blood lipids Family history of dementia Sibling Family history of cardiovascular disease Family history of malignant neoplasm of breast in first degree relative Other Family history of malignant neoplasm of breast Social History Social History Smoking packs per day: 1 Smoking cigarettes per day: 20.0 Years smoked: 38 Smoking pack-years: 38.00 Smoking status: Former smoker Tobacco type: cigarettes Smoking end date: 02/12/96 Alcohol intake: current Drinks per week: 6 Alcohol use details: BEER Substance use: never Substance use type
[2023-07-28] MEDS: predniSONE 40 MG, predniSONE 10 MG 50 MG PO ×2 (12:43→17:16)
--- NOTE | 2023-07-28 13:18 | P.PNIM_ITS ---
Progress Note: A&P Assessment and Plan (1) Hypothyroidism (acquired): Code(s): E03.9 - Hypothyroidism, unspecified Status: Acute (2) Hyperlipidemia, unspecified: Code(s): E78.5 - Hyperlipidemia, unspecified Status: Acute (3) Essential (primary) hypertension: Code(s): I10 - Essential (primary) hypertension Status: Acute (4) Restless leg syndrome: Code(s): G25.81 - Restless legs syndrome Status: Acute (5) UTI (urinary tract infection): Code(s): N39.0 - Urinary tract infection, site not specified Status: Acute (6) Hypotension: Code(s): I95.9 - Hypotension, unspecified Status: Acute (7) Syncopal episodes: Code(s): R55 - Syncope and collapse Status: Acute Plan Syncope/Unresponsive * CT head Focal asymmetric diminished attenuation of the left frontal lobe which may be due to remote cerebrovascular accident; less likely would be edema, possibly associated with metastasis, Small chronic right cerebellar hemispheric infarct * HX of neoplasm of the lungs in remission need to rule out brain metastasis * MRI pending * Orthostatic Negative * Carotids pending * Contrast allergy mild will pre-treat if CTA needed * echo pending * Neurology consulted * Neuro check q.4 hour for the 1st 24 hours. * threat monitoring analyst and telemetry continuously. * Blood pressure management. -Keep the systolic blood pressure more than 200 or diastolic more than 110. Then lower blood pressure by 15% within the 1st 24 hours. * PT/OT eval and treat. * Check for Lipid panel and hemoglobin A1c. * Add statins 40 mg q.day, aspirin 81 mg g q.day 07/27 * CTA pending * Pre-medicating for contrast due to allergy UTI * Urine cultures pending * Continue IV hydration. * Monitor vital signs. * [place] * Monitor for obstructive uropathy and pyelonephritis Hypotension/Hypertension * Reported by EMS resolved on arrival to ED * Patient now with hypertension * HX HTN * Will resume home medications * Subclavian steal syndrome?? Stenosis of RT subclavian referral to vascular outpatient Hypothyroidism * TSH low * will reduce patient home levothyroxine to 75 mcg need follow-up with primary outpatient HLD * Lipid panel * Started atorvastatin HX restless leg: Resume Requip HX MDD: Resume sertraline HX neuropathy: Resume gabapentin Code status: Full code per patient DVT prophylaxis: Lovenox Stress ulcer prophylaxis: Protonix 40 daily PT/OT notes: PT/OT evaluation Disposition: Patient was admitted due to syncopal/unresponsive episode witnessed by family CT head suspicious of possible CVA MRI pending, patient also being treated for UTI and initial hypotension which has resolved. Current findings negative will need CTA and pre-medicated due to contrast dye. Patient aware of referral needed for vascular outpatient. Time Spent With Patient Time with patient: 15 - 25 minutes Subjective Date/time seen: 07/28/23 13:18 Interval history: Admission: Syncope/Nausea Narrative: Patient is pleasant 77-year-old female worth was brought to the emergency department via EMS after family reported she was not responding, slumped over in chair and making heavy noises like she was going to vomit. EMS was called and per medical record she was severely hypotensive and bradycardia, was given atropine and IV fluid resuscitation prior to arrival. Upon arrival
--- NOTE | 2023-07-28 13:18 | PM.IMPN ---
Progress Note: A&P Assessment and Plan (1) Hypothyroidism (acquired): Code(s): E03.9 - Hypothyroidism, unspecified Status: Acute (2) Hyperlipidemia, unspecified: Code(s): E78.5 - Hyperlipidemia, unspecified Status: Acute (3) Essential (primary) hypertension: Code(s): I10 - Essential (primary) hypertension Status: Acute (4) Restless leg syndrome: Code(s): G25.81 - Restless legs syndrome Status: Acute (5) UTI (urinary tract infection): Code(s): N39.0 - Urinary tract infection, site not specified Status: Acute (6) Hypotension: Code(s): I95.9 - Hypotension, unspecified Status: Acute (7) Syncopal episodes: Code(s): R55 - Syncope and collapse Status: Acute Plan Syncope/Unresponsive CT head Focal asymmetric diminished attenuation of the left frontal lobe which may be due to remote cerebrovascular accident; less likely would be edema, possibly associated with metastasis, Small chronic right cerebellar hemispheric infarct HX of neoplasm of the lungs in remission need to rule out brain metastasis MRI pending Orthostatic Negative Carotids pending Contrast allergy mild will pre-treat if CTA needed echo pending Neurology consulted Neuro check q.4 hour for the 1st 24 hours. registered radiologic technologist and telemetry continuously. Blood pressure management. -Keep the systolic blood pressure more than 200 or diastolic more than 110. Then lower blood pressure by 15% within the 1st 24 hours. PT/OT eval and treat. Check for Lipid panel and hemoglobin A1c. Add statins 40 mg q.day, aspirin 81 mg g q.day 07/27 CTA pending Pre-medicating for contrast due to allergy UTI Urine cultures pending Continue IV hydration. Monitor vital signs. [place] Monitor for obstructive uropathy and pyelonephritis Hypotension/Hypertension Reported by EMS resolved on arrival to ED Patient now with hypertension HX HTN Will resume home medications Subclavian steal syndrome?? Stenosis of RT subclavian referral to vascular outpatient Hypothyroidism TSH low will reduce patient home levothyroxine to 75 mcg need follow-up with primary outpatient HLD Lipid panel Started atorvastatin HX restless leg: Resume Requip HX MDD: Resume sertraline HX neuropathy: Resume gabapentin Code status: Full code per patient DVT prophylaxis: Lovenox Stress ulcer prophylaxis: Protonix 40 daily PT/OT notes: PT/OT evaluation Disposition: Patient was admitted due to syncopal/unresponsive episode witnessed by family CT head suspicious of possible CVA MRI pending, patient also being treated for UTI and initial hypotension which has resolved. Current findings negative will need CTA and pre-medicated due to contrast dye. Patient aware of referral needed for vascular outpatient. Time Spent With Patient Time with patient: 15 - 25 minutes Subjective Date/time seen: 07/28/23 13:18 Interval history: Admission: Syncope/Nausea Narrative: Patient is pleasant 77-year-old female worth was brought to the emergency department via EMS after family reported she was not responding, slumped over in chair and making heavy noises like she was going to vomit. EMS was called and per medical record she was severely hypotensive and bradycardia, was given atropine and IV fluid resuscitation prior to arrival. Upon arrival to the emergency department patient was responsive and states she feels better however did not recall any events leading up to her arrival to the emergency department. Patient has a past medical history of hypothyroidism, HLD, HTN, osteoporosis, and malignant neoplasm of the lungs currently in remission. Initial findings in the ED showed a UA nitrate and leukocytes positive consistent with UTI patient also reported pain with urination, NA of 129 which appears chronic her last admissions, negative troponin, BNP mildly elevat
[2023-07-28] MEDS: rOPINIRole HCL 0.5 MG TABLET PO (20:20)
[2023-07-29] VITALS: BP 172/89; PULSE 67; PULSE 81; RESP 18; TEMP 36.5; O2SAT 93
[2023-07-29] MEDS: diphenhydrAMINE HCl INJ 50 MG/ML VIAL (00:05)
[2023-07-29] MEDS: predniSONE 40 MG, predniSONE 10 MG 50 MG PO (00:05)
[2023-07-29 04:00] VITALS: BP 132/78; PULSE 49; PULSE 67; RESP 18; TEMP 36.4; O2SAT 95
[2023-07-29 05:11] LABS: Hematocrit 38.8 % (37.0-47.0); Hemoglobin 13.2 g/dL (12.0-15.0); Mean Corpuscular Hemoglobin 30.2 pg (26-34); Mean Corpuscular Volume 88.8 fl (80-100); Mean Platelet Volume 9.1 fl (7.4-10.4); Platelet Count Result 191 k/mm3 (150-375); Red Blood Count 4.37 M/mm3 (4.2-5.4); White Blood Count 7.3 K/mm3 (4.5-10.0)
[2023-07-29 05:27] LABS: Alanine Aminotransferase 15 U/L (6-35); Albumin Level 4.4 g/dL (3.5-5.1); Alkaline Phosphatase 82 U/L (38-126); Anion Gap 6 mmol/L (4-12); Aspartate Amino Transferase 24 U/L (14-36); Bilirubin,Total 0.5 mg/dL (0.2-1.3); Blood Urea Nitrogen 11 mg/dL (7-17); Calcium 9.5 mg/dL (8.4-10.2); Carbon Dioxide 24 mmol/L (22-30); Chloride 103 mmol/L (98-107); Estimated Glomerular Filt Rate > 60; Glucose 168 mg/dL (65-110); Potassium 4.2 mmol/L (3.4-5.0); Sodium 133 mmol/L (137-145)
[2023-07-29] MEDS: LEVOTHYROXINE SODIUM 75 MCG TABLET PO (06:29)
[2023-07-29 08:00] VITALS: BP 114/90; PULSE 75; PULSE 83; RESP 16; TEMP 36.7; O2SAT 100
[2023-07-29 08:22] VITALS: O2SAT 95
[2023-07-29] MEDS: SERTRALINE HCL 50 MG TABLET 100 MG PO (08:24)
[2023-07-29] MEDS: CYANOCOBALAMIN 1,000 MCG TABLET 1000 MCG PO (08:24)
[2023-07-29] MEDS: CALCIUM/VITAMIN D 500 MG/5 MCG (200 I.U.) TABLET PO (08:24)
[2023-07-29] MEDS: GABAPENTIN 300 MG CAPSULE 600 MG PO (08:24)
[2023-07-29] MEDS: ENOXAPARIN 40 MG/0.4 ML SYRINGE SUB-Q (08:25)
[2023-07-29] MEDS: ATORVASTATIN 40 MG TABLET PO (08:25)
[2023-07-29] MEDS: ASPIRIN 81 MG ENTERIC TABLET PO (08:25)
--- NOTE | 2023-07-29 11:32 | PM.DS ---
DS: Admitting Diagnosis Discharge Date 07/29/23 Admitting Diagnosis Syncope DS: Discharge Diagnosis Discharge Diagnosis (1) Hypothyroidism (acquired): Code(s): E03.9 - Hypothyroidism, unspecified Status: Acute (2) Hyperlipidemia, unspecified: Code(s): E78.5 - Hyperlipidemia, unspecified Status: Acute (3) Essential (primary) hypertension: Code(s): I10 - Essential (primary) hypertension Status: Acute (4) Restless leg syndrome: Code(s): G25.81 - Restless legs syndrome Status: Acute (5) UTI (urinary tract infection): Code(s): N39.0 - Urinary tract infection, site not specified Status: Acute (6) Hypotension: Code(s): I95.9 - Hypotension, unspecified Status: Acute (7) Syncopal episodes: Code(s): R55 - Syncope and collapse Status: Acute DS: Summary Hospital Course Hospital Course: This is a 77-year-old female with past medical history of hypothyroidism, hyperlipidemia, hypertension, osteoporosis and malignant neoplasm of the lungs currently in remission the presented to the ED on 07/27/2023 due to syncopal episode. Patient was found by family member and EMS was called. She was found to be severely hypotensive and bradycardic with improvement with fluid resuscitation. Initial findings in the ED showed a UA nitrate and leukocytes positive consistent with UTI patient also reported pain with urination, NA of 129 which appears chronic her last admissions, negative troponin, BNP mildly elevated at 342 and chest x-ray showing no acute cardiopulmonary disease. CT of the head showed focal asymmetric diminished attenuation of the left frontal lobe which may be due to remote CVA. Patient was admitted for further workup of possible CVA as well as UTI treatment. MRI revealed a small frontal lobe infarct. Carotid Dopplers did show pre subclavian steal syndrome and CTA was ordered. CTA showed less than 50% stenosis bilateral carotid arteries. Patient's subclavians were not mentioned in CTA report. Neurology was consulted and patient was started on 81 mg aspirin, atorvastatin 40 mg daily and outpatient vascular referral. It was recommended the patient did not drive or operate heavy machinery for least 6 months. Patient was given Rocephin for UTI and culture came back positive for Klebsiella pneumoniae pansensitive. She was downgraded to oral antibiotics and discharged home with them as well as her other new medication. Her labs and vital signs are stable and she is medically clear for discharge at this time. Time Spent with Patient Time attestation: Total time spent providing and/or coordinating discharge services: Exam Narrative: GENERAL: Comfortable, no acute distress HENMT: moist mucous membranes EYES: EOM intact b/l NECK: no lymphadenopathy RESPIRATORY: clear to auscultation, no increased respiratory effort CARDIO: Regular rate and rhythm GI: soft, nontender, bowel sounds present SKIN/EXTREMITIES: no rashes, no edema, no redness or tenderness NEURO: PROM intact, answers questions appropriately, A&O x4 DS: Data Data Completed and Pending Labs on day of discharge: Labs from last 24 hours 07/29/23 05:02 WBC 7.3 RBC 4.37 Hgb 13.2 Hct 38.8 MCV 88.8 MCH 30.2 MCHC 34.0 RDW 13.0 Plt Count 191 MPV 9.1 Sodium 133 L Potassium 4.2 Chloride 103 Carbon Dioxide 24 Anion Gap 6 BUN 11 Creatinine 0.50 L Estim Creat Clear Calc Not Reportable Estimated GFR > 60 Glucose 168 H Calcium 9.5 Total Bilirubin 0.5 AST 24 ALT 15 Alkaline Phosphatase 82 Total Protein 7.0 Albumin 4.4 Discharge Plan Discharge Consulting providers: Ana Gordon Discharging Clinician: Lara Ann Patient Disposition: Home, Self-Care Activity: as tolerated Diet: heart healthy Discharge Instructions: New medications: Aspirin 81 mg daily Lipitor 40 mg daily. Augmentin twice a day for 5 more days. Next dos
[2023-07-29 12:00] VITALS: BP 124/80; PULSE 71; RESP 16; TEMP 36.7; O2SAT 98
== END 2023-07-29 13:06 | disposition home or self-care (01) ==
LOC: ANHED 06:25 → ANH2MED 07-28 07:03 → ANH3MEDSUR 07-29 12:48
PROVIDERS: Admitting Provider Internal Medicine; Emergency Provider Emergency Medicine; PCP Family Medicine; Visit Provider Nurse Practitioner Family
DX: I63.9 Cerebral infarction, unspecified (principal); N39.0 Urinary tract infection, site not specified; B96.1 Klebsiella pneumoniae [K. pneumoniae] as the cause of diseases classified elsewhere; I95.9 Hypotension, unspecified; R55 Syncope and collapse; I10 Essential (primary) hypertension; E78.5 Hyperlipidemia, unspecified; E03.9 Hypothyroidism, unspecified; J43.9 Emphysema, unspecified; M81.0 Age-related osteoporosis without current pathological fracture; G62.0 Drug-induced polyneuropathy; F32.9 Major depressive disorder, single episode, unspecified; D56.9 Thalassemia, unspecified; G25.81 Restless legs syndrome; Z85.118 Personal history of other malignant neoplasm of bronchus and lung; Z87.891 Personal history of nicotine dependence; Z79.51 Long term (current) use of inhaled steroids; Z79.899 Other long term (current) drug therapy; Z20.822 Contact with and (suspected) exposure to COVID-19
CPT/HCPCS: 36415; 70450; 70496; 70498; 70551; 71045; 80053; 80061; 80307; 81001; 83036; 83605; 83735; 83880; 84443; 84484; 85025; 85027; 87077; 87086; 87088; 87186; 87637; 93005; 93306; 93880; 96361; 96365; 96366; 96372; 96375; 96376; 97161; 97165; 99285; A9270; G0378; J0696; J1200; J1650; J2060; J7030; J7512; Q9967

== ENCOUNTER 2024-04-17 14:38 | Outpatient (CLI) | payer MEDICARE, SELFPAY ==
--- NOTE | ~2024-04-17 | XR_ITS ---
CHEST RADIOGRAPH, PA AND LATERAL CLINICAL HISTORY: R07.89 - Other chest pain . COMPARISON: None available TECHNIQUE: PA and lateral views of the chest. FINDINGS The cardiomediastinal silhouette is unremarkable. The lungs are clear. IMPRESSION: No focal infiltrate or effusion. Reviewed, dictated and finalized at location A. CING MACHINE OPERATOR
== END 2024-04-17 14:39 | disposition home or self-care (01) ==
PROVIDERS: PCP Family Medicine; Visit Provider Student in an Organized Health Care Education/Training Program
DX: R07.89 Other chest pain (principal)
CPT/HCPCS: 71046

== ENCOUNTER 2024-09-28 12:34 | Outpatient (CLI) | payer MEDICARE, SELFPAY ==
--- OUTSIDE RECORDS SUMMARY | 2024-09-28 13:18 | XMS_ITS | Continuity of Care Document ---
Author Organization [facility] Address [address] [place] [address] [address] [place] [address] Phone Care Team Providers Care Drophammer Operator Name Role Phone Tobias Bradshaw Unavailable Unavailable Procedures Procedure Date Eye Exam & Treatment Refraction Office/outpatient Visit, [facility] Corneal Pachymetry Fundus Photography W/ Report Eye Exam & Treatment Refraction Office/outpatient Visit, [facility] Advance Directives Directive Yes / No Effective Date File Name No Information Encounters Encounter Description Practice Location Reason(s) For Visit Diagnoses Date Provider Providers Copied on Encounter [facility], [address] [place] [address] [address], [place], [place], [id number], tel:[phone] SEC [facility] No Information 4-201 0 Augustine Collado. Re[address] [facility], [place], [place], [facility], . tel:[phone] Office/outpat ient Visit, Est [facility], [address] [place] [address] [address], [place], [place], [id number], tel:[phone] SEC [facility] No Information 8-200 9 Augustine Collado. Reuben [facility] [address], [place], [place], [facility], [place]. tel:[phone] Referring Provider: Reuben Puente [facility] [address], [place], [place], [facility]. tel:[phone] [facility], [address], [place], [place], [id number], [place] tel:[phone] SEC [facility] No Information 9 Augustine Collado. [address] [facility] , [address], [place], [place], [facility], . tel:[phone] Office/outpat ient Visit, [facility], [address], [place], [place], [address], [place] tel:[phone] SEC [facility] No Information 8 Augustine Collado. [address] [facility] , [address], [place], [place], [facility], . tel:[phone] Family History Family Member Type Diagnosis Age At Onset No Information Payers Payer name Insurance type Covered constitution party ID Authoriza tion(s) [place] [id number] Social History Type Description Quantity Date Captured Comments Sex Female Smoking Status No Information Chief Complaint And Reason For Visit No Information Reason For Referral Reason For Referral No Information History Of Present Illness Encounter Date Complaint History Of Prese nt Illness No Information Functional Status Date Functional Assessmen t No Information Instructions Date Instruction Additional Infor mation No Information Assessments Type Assessment Date No Information Patient Care Teams Name Effective Dates (start - stop) Status Members No Information
--- OUTSIDE RECORDS SUMMARY | 2024-09-28 13:18 | XMS_ITS ---
Author Organization [facility] Address [address] [place] [address] Care Team Providers Care Cryptanalyst Name Role Phone Mark Henriquez MD Unavailable [phone] Balaji Cerrato MD Unavailable Cesar Fan MD Unavailable [phone] Jennifer Rosado MD Unavailable [phone] Spike Marrero DMD Unavailable Aldair Alejandro DDS Unavailable Mark Henriquez MD Primary Care Provider Conner Tipton MD PhD Unavailable [phone] Active Problems Problem Noted Date Diagnosed Date Dehydration 04/04/2022 Iron deficiency anemia 10/10/2020 Cerebrovascular accident (CVA) 08/31/2020 Overview (08/31/2020): Added automatically from request for surgery [id number] Osteoporosis 08/31/2020 Overview (08/31/2020): Added automatically from request for surgery [id number] Osteopenia 08/31/2020 Overview (08/31/2020): Added automatically from request for surgery [id number] Cervical myelopathy 08/18/2018 Overview (08/18/2018): Added automatically from request for surgery [id number] Status post lumbar spine ish jewels for decompression of spinal cord 03/27/2018 Malignant neoplasm metastatic to bone 03/26/2018 Back pain 02/10/2018 Assessment & Plan (02/11/2018 2:28 AM BILINGUAL ADMINISTRATIVE ASSISTANT): Recent hospitalizations for severe back pain. Outpatient pain medication regimen managed by her oncologist, Dr. Maharaj. MRI Cervical spine at [facility] 02/07/2018 with extensive metastatic disease from C5-T2 and severe cervical spondylosis. No lumbar imaging in our system. Progressively worsening LE weakness over past few days, no bowel/bladder incontinence, no perianal numbness, no paresthesias or radiation of her back pain. CT at OSH with lumbar compression fracture. -Ordered MRI brain and full spine w/contrast -Outpatient pain medication regimen: Fentanyl 250 mcg q72h, Dilaudid 1 mg q4h prn, Percocet 10-325 q4h prn, tramadol 50 mg q4h prn -Will start Dilaudid DORR OPERATOR for pain control, likely will need pain management consult in AM. Continue Fentanyl patch -Start gabapentin 300 mg daily and uptitrate as tolerated, continue home sertraline -Given concern for spinal cord compression with new LE weakness, will continue steroids started at OSH. Decadron 4 mg q6h (received 10 mg at OSH prior to transfer). Will need to consult neurosurgery in the AM Assessment & Plan (02/11/2018 2:18 AM BILINGUAL ADMINISTRATIVE ASSISTANT): Recent hospitalizations for severe back pain. Outpatient pain medication regimen managed by her oncologist, Dr. Maharaj. MRI Cervical spine at [facility] 02/07/2018 with extensive metastatic disease from C5-T2 and severe cervical spondylosis. No lumbar imaging in our system. Progressively worsening LE weakness over past few days, no bowel/bladder incontinence, no perianal numbness, no paresthesias or radiation of her back pain. CT at OSH with lumbar compression fracture. -Ordered MRI brain and full spine w/contrast -Outpatient pain medication regimen: Fentanyl 250 mcg q72h, Dilaudid 1 mg q4h prn, Percocet 10-325 q4h prn, tramadol 50 mg q4h prn -Will start Dilaudid DORR OPERATOR for pain control, likely will need pain management consult in AM. Continue Fentanyl patch -Start gabapentin 300 mg daily and uptitrate as tolerated, continue home sertraline -Given concern for spinal cord compression with new LE weakness, will continue steroids started at OSH. Decadron 4 mg q6h (received 10 mg at OSH prior to transfer) Hypothyroidism 02/10/2018 Assessment & Plan (02/11/2018 2:29 AM BILINGUAL ADMINISTRATIVE ASSISTANT): Check TSH. -Continue home levothyroxine 100 mcg daily Assessment & Plan (02/10/2018 9:40 PM BILINGUAL ADMINISTRATIVE ASSISTANT): Check TSH. 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 Follows with Dr. Maharaj. Recently started on cycle 1 of Keytruda on 01/24/18 with plans to add carboplatin and Alimta next cycle. -Touch base w/ Dr. 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 Follows with Dr. Maharaj. Recently started on cycle 1 of Keytruda on 01/24/18 with plans to add carboplatin and Alimta next cycle. -Touch base w/ Dr. Maharaj -Frequent admissions for back pain as above, outpatient pain medication regimen managed by her oncologist Current Treatment and Therapy Plans DENOSUMAB (XGEVA) INJECTION* Plan Start Date:04/16/2018 Plan Provider:Gunnar Maharaj MD Linked Problems Malignant neoplasm metastati c to bone (HCC) Treatment Medications No medications scheduled. Other Current Plans Ferric Carboxymaltose (INJECTAFER) Infusion* Plan Start Date:10/14/2020 Plan Provider:Gunnar Maharaj MD Linked Problems Iron deficiency anemia, unsp ecified iron deficiency anemia type Treatment Medications No medications scheduled. Hydration Therapy Plan* Plan Start Date:04/05/2022 Plan Provider:Conner Tipton MD PhD Linked Problems Dehydration Treatment Medications No medications scheduled. Past Treatment and Therapy Plans Line Care Plan Name Start Date Discontinue Date Treatment Medications Discontinue Reason Plan Provider IV MAINTENANCE THERAPY PLAN 05/29/2018 04/23/2023 No medications scheduled. Automatic discontinuation of dormant plans Gunnar Maharaj MD Oncology Chemotherapy Treatment Plan Name Start Date Discontinue Date Treatment Medications Discontinue Reason Plan Provider Cycles Pembrolizumab 21 Day Cycles 018 02/08/2023 pembrolizumab (KEYTRUDA)pembr olizumab (KEYTRUDA) IVPB in 100 mL Automatic discontinuation of dormant plans Gunnar Maharaj MD 51 of 66 cycles started Oncology Supportive Care Therapy Plan Plan Name Start Date Discontinue Date Treatment Medications Discontinue Reason Plan Provider CYANOCOBALAMIN - (VITAMIN B12) INJECTION EVERY 9 WEEKS 8 03/26/2018 No medications scheduled. Therapy Complete Gunnar Maharaj MD Lifetime Dose Tracking * Chemical Lifetime Dose Automatic Entry Manual Entr y Fluoro Time 5.47 minutes 5.47 minutes 0 minutes Air kerma at the reference point (Ka,r) 3 mGy 3 mGy 0 mGy DLP 1,147 mGycm 1,147 mGycm 0 mGycm Resolved Problems Problem Noted Date Diagnosed Date Resolved Date Malignant neoplasm of lung 08/31/2020 1 02/12/2021 Overview (08/31/2020): Added automatically from request for surgery [id number]
--- OUTSIDE RECORDS SUMMARY | 2024-09-28 13:18 | XMS_ITS | Encounter Summary ---
Author Organization [facility] Address [address] [facility] [address] [place] [address] Phone Care Team Providers Care Clinical Office Technician Name Role Phone Mark Henriquez MD Primary Care Provider Mark Henriquez MD Unavailable [phone] Gunnar Maharaj MD Unavailable [phone] Balaji Cerrato MD Unavailable [phone] Cesar Fan MD Unavailable [phone] Jennifer Rosado MD Unavailable [phone] Margot Henriquez MD Primary Care Provider + Spike Marrero DMD Unavailable [phone] Aldair Alejandro DDS Unavailable [phone] Margot Henriquez MD Primary Care Provider + Mark Henriquez MD Primary Care Provider Enzo Watts MD Unavailable Conner Tipton MD PhD Unavailable Encounter Details Date Type Department Care Team (Late st Contact Info) Description 04/30/2019 Telephone [facility] Oncology [address] [facility] [place] [address] [place] [id number] Kirsten Esquivel, NEGRO Social History Tobacco Use Types Packs/Day Years Used Date Smoking Tobacco: Former Cigarettes 1 38 1 960 - 1998 Smokeless Tobacco: Never Alcohol Use Standard Drinks/Week Comments Yes 4 (1 standard drink = 0.6 oz pur e alcohol) Comments No Sex and Gender Information Value Date Recorded Sex Assigned at Not on file Legal Sex Female 12:23 AM FREELANCE DIRECTOR Gender Identity Not on file Sexual Orientation Not on file COVID-19 Exposure Response Date Recorded In the last month, have you been in contact with someone who was confirmed or suspected to have Coronavirus / COVID-19? No / Unsure 04/23/2019 2:43 PM CDT documented as of this encounter Plan of Treatment Not on file documented as of this encounter Visit Diagnoses Not on filedocumented in this encounter Additional Health Concerns Infection Onset Date Last Indicated Resolved Time COVID: Suspected 02/10/2022 02/10/2022 02/10/2022 7:22 PM FREELANCE DIRECTOR documented as of this encounter Care Teams Clinical Office Technician Relationship Specialty Start Date End Date Mark Henriquez MD PCP - General 03/12/19 11/10/19 Margot Henriquez MD [address] [address] PCP - General 11/11/19 07/27/20 Margot Henriquez MD [address] [address] PCP - General 07/28/20 11/16/21 aMrk Henriquez MD PCP - General Family Medicine 11/17/21 Mark Henriquez MD 03/12/19 Gunnar Maharaj MD Medical Oncologist/Hematologis t Hematology and Oncology 01/07/18 11/19/21 Balaji Cerrato MD [address] [facility] [address] [facility] [address] [place] [address] Consulting Physician Vascular Surgery 01/10/18 Cesar Fan MD [address] [facility] [address] [address] Consulting Physician Radiation Oncology 01/10/18 Jennifer Rosado MD [address] [place] [address] [address] Consulting Physician Neurosurgery 06/19/18 Spike Marrero DMD [address] [place] [id number] Dentist Oral Surgery 05/23/20 Aldair Alejandro DDS [facility] [address] [address] Dentist Oral Surgery 05/27/20 Enzo Watts MD [address] [address] Medical Oncologist/Hematologis t Medical Oncology 11/20/21 02/14/22 Conner Tipton MD PhD [address] [place] [address] MEDICAL ONCOLOGY, [facility] [address] [place] [address] Consulting Physician Medical Oncology 02/15/22 documented as of this encounter
--- OUTSIDE RECORDS SUMMARY | 2024-09-28 13:18 | XMS_ITS | Clinical Summary ---
Author Organization [facility] Address [address] [place] [address] Care Team Providers Care Beer Merchant Name Role Phone Mark Henriquez MD Unavailable [phone] Balaji Cerrato MD Unavailable [phone] Cesar Fan MD Unavailable [phone] Jennifer Rosado MD Unavailable [phone] Spike Marrero DMD Unavailable Aldair Alejandro DDS Unavailable Mark Henriquez MD Primary Care Provider Conner Tipton MD PhD Unavailable Allergies Active Allergy Reactions Criticality Noted Date Comments Iodinated Contrast Media Itching,Swelling Medium 02/05 Latex Hives Medium 05/15/2017 Medications levothyroxine (SYNTHROID, LEVOTHROID) 100 mcg tablet Take 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 019 Active calcium carbonate (CALCIUM 500 ORAL)Indications: for supplement Take 1 tablet by mouth 2 (two) times a day Active sertraline (ZOLOFT) 100 mg tabletIndications :Anxiety with Depression Take 1 tablet (100 mg total) by mouth every morning Active polyethylene glycol (MIRALAX) 17 gram/dose powderIndications :constipation Take 17 g by mouth as needed Active gabapentin (NEURONTIN) 300 mg capsule TAKE ONE CAPSULE BY MOUTH TWICE DAILY 60 capsule 10 022 Active rOPINIRole (REQUIP) 2 mg tablet TAKE ONE TABLET BY MOUTH EVERY EVENING 30 tablet 1 Active dicyclomine (BENTYL) 20 mg tablet Take 1 tablet (20 mg total) by mouth every 6 (six) hours as needed (abdominal pain) 28 tablet Active Additional Information Patient not taking.Reported on 09/22/2024 ondansetron (ZOFRAN) 4 mg tablet Take 1 tablet (4 mg total) by mouth every 6 (six) hours as needed for nausea or vomiting 28 tablet Active Additional Information Patient not taking.Reported on 09/22/2024 LORazepam (ATIVAN) 0.5 mg tablet Take 1 tablet (0.5 mg total) by mouth once for 1 dose Take 30 min prior to MRI 1 tablet 023 Active atorvastatin (LIPITOR) 40 mg tablet 024 Active estradioL (ESTRACE) 0.01 % (0.1 mg/gram) vaginal cream Active diphenhydrAMINE (BENADRYL) 50 mg capsule Take 1 capsule (50 mg total) by mouth once for 1 dose Take [address] scan 1 capsule 025 Active predniSONE (DELTASONE) 50 mg tablet Take 1 tablet (50 mg) by mouth daily TAKE 1 PILL 13 hours, 7 and 1 hour prior to scan 3 tablet 025 Active naproxen (NAPROSYN) 250 mg tabletIndications :Pain Take 1 tablet (250 mg total) by mouth 2 (two) times a day with meals for 12 days 24 tablet 025 Active folic acid (FOLVITE) 1 mg tabletIndications :Primary adenocarcinoma of upper lobe of left lung (HCC) Take 1 tablet by mouth daily starting 7 days before the first treatment and continuing until 21 days after the last pemetrexed treatment 30 tablet 5 018 2017 Discontinued diphenhydrAMINE (BENADRYL) 50 mg capsule Take 1 capsule (50 mg total) by mouth once for 1 dose Take [address] scan 1 capsule 025 2024 Discontinued(R eorder) predniSONE (DELTASONE) 50 mg tablet Take 1 tablet (50 mg) by mouth daily TAKE 1 PILL 13 hours, 7 and 1 hour prior to scan 3 tablet 025 2024 Discontinued(R eorder) Active Problems Problem Noted Date Diagnosed Date Dehydration 04/04/2022 Iron deficiency anemia 10/10/2020 Cerebrovascular accident (CVA) 08/31/2020 Overview (08/31/2020): Added automatically from request for surgery [id number] Osteoporosis 08/31/2020 Overview (08/31/2020): Added automatically from request for surgery [id number] Osteopenia 08/31/2020 Overview (08/31/2020): Added automatically from request for surgery [id number] Cervical myelopathy 08/18/2018 Overview (08/18/2018): Added automatically from request for surgery [id number] Status post lumbar spine ish jewels for decompression of spinal cord 03/27/2018 Malignant neoplasm metastatic to bone 03/26/2018 Back pain 02/10/2018 Assessment & Plan (02/11/2018 2:28 AM 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 Outpatient pain medication regimen managed by her oncologist, Dr. Maharaj. MRI Cervical spine at [facility] 02/07/2018 with extensive metastatic disease from C5-T2 [...] 50 mg q4h prn -Will start Dilaudid RN PROCEDURES for pain control, likely will need pain [...] AM Assessment & Plan (02/11/2018 2:18 AM 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 Outpatient pain medication regimen managed by her oncologist, Dr. Maharaj. MRI Cervical spine at [facility] 02/07/2018 with extensive metastatic disease from C5-T2 [...] 50 mg q4h prn -Will start Dilaudid RN PROCEDURES for pain control, likely will need pain management consult in AM. Continue Fentanyl patch -Start gabapentin 300 mg daily and uptitrate as tolerated, continue home sertraline -Given concern for spinal cord compression with new LE weakness, will continue steroids started at OSH. Decadron 4 mg q6h (received 10 mg at OSH prior to transfer) Hypothyroidism 02/10/2018 Assessment & Plan (02/11/2018 2:29 AM INTERIOR DESIGN FACULTY MEMBER): Check TSH. -Continue home levothyroxine 100 mcg daily Assessment & Plan (02/10/2018 9:40 PM INTERIOR DESIGN FACULTY MEMBER): Check TSH. 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 Follows with Dr. Maharaj. Recently started on cycle 1 of Keytruda on 01/24/18 with plans to add carboplatin and Alimta next cycle. -Touch base w/ Dr. 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 Follows with Dr. Maharaj. Recently started on cycle 1 of Keytruda on 01/24/18 with plans to add carboplatin and Alimta next cycle. -Touch base w/ Dr. Maharaj -Frequent admissions for back pain as above, outpatient pain medication regimen managed by her oncologist Resolved Problems Problem Noted Date Diagnosed Date Resolved Date Malignant neoplasm of lung 08/31/2020 1 02/12/2021 Overview (08/31/2020): Added automatically from request for surgery [id number] Encounters Date Type Department Care Team Description 09/22/2024 10:00 AM CDT Office Visit [facility] Neurosurgery [address] [place] [address] Office [facility] [address] [place] [address] Shaheed Esquivel PA Acute midline low back pain without sciatica (Primary Dx); Cervical myelopathy (HCC) 09/22/2024 9:26 AM CDT - 09/22/2024 11:59 PM CDT Hospital Encounter [id number] [address] [place] [address] [address] [place] [phone] Lumbar pain; Acute midline low back pain without sciatica Discharge Disposition: Discharge to home or self care 09/16/2024 Orders Only [facility] [address] [place] [address] Office [address] [place] [address] Shaheed Esquivel PA Acute midline low back pain without sciatica (Primary Dx); Lumbar pain 09/16/2024 Telephone [facility] Scheduling [id number] [facility] [place] [address] Katerina Ann 09/15/2024 11:15 AM CDT Lab [facility] [address] [place] [address] Primary adenocarcinoma of upper lobe of left lung (HCC) 09/15/2024 10:30 AM CDT Office Visit [facility] [address] [place] [phone] Conner Tipton MD PhD Primary adenocarcinoma of upper lobe of left lung (HCC) (Primary Dx); Malignant neoplasm metastatic to bone (HCC); Acute midline low back pain without sciatica 09/08/2024 10:00 AM CDT - 09/08/2024 11:59 PM CDT Hospital Encounter [facility] [address] [place] [address] Primary adenocarcinoma of upper lobe of left lung (HCC); Malignant neoplasm metastatic to bone (HCC) Discharge Disposition: Discharge to home or self care from Last 3 Months Immunizations Immunization Administration Dates Next Due Influenza, Quadrivalent, Rec ombinant, Egg Free, Preservative Free, Intramuscular 12/06/2017 Influenza, Unspecified 11/13/2021,2019,12/12/2018,12/10 Moderna SARS-CoV-2 Monovalen t Vaccination (12+ YRS) 01/24/2021,05/02/2020,03/31/2020 Surgical History Surgery Date Site/Laterality Comments SINUS SURGERY 1989's Sinus Surgery - (Added by TW Conv) COLONOSCOPY BREAST BIOPSY Biopsy Breast Open - (Added by TW Conv) BREAST LUMPECTOMY 1979? Left BACK SURGERY 02/11/2018 T12-L4 Minimally-Invasive Percutaneous Posterior Spinal Instrumentation from T12 to L4 using Property[employer] Prime Fenestrated system. SHOULDER ARTHROSCOPY 05/27/2017 Left with rotator cuff repair OTHER SURGICAL HISTORY 08/05/2018 MRI SPINE TOTAL COMPLETE W WO CONTRAST; MRI BRAIN W WO CONTRAST LUMBAR FUSION 03/01/2018 Lumbar Fusion Decompression Laaaminectomy UTERINE SUSPENSION 1969's SHOULDER SURGERY 02/11/2015 - 02/11/2016 Left Medical History Medical History Date Comments Age-related osteoporosis wit hout current pathological fracture Osteoporosis - (Added by TW Conv) Personal history of other me ntal and behavioral disorders History of depression - (Add ed by TW Conv) Personal history of other en docrine, nutritional and metabolic disease History of hypothyro idism - (Added by TW Conv) Lung cancer (HCC) Primary adenoc arcinoma of upper lobe of left lung (CMS/HCC) History of radiation exposure la st 04/30/2018 Hypothyroid Rotator cuff tear 2018 left shoulder Personal history of other me dical treatment Spondylolisthesis & DDD--spi ne Neuropathy Bilateral hands Impaired functional mobility , balance, and endurance IONE (hard of hearing) Wears bila teral hearing aides Anxiety Back pain Osteoporosis Personal history of other me dical treatment History of Impaired function al mobility, balance, and endurance Hyperkalemia serum potasium=5 .5 on 08/21/2018 Hyponatremia Decreased serum sodium level of 138 on 08/21/2018 (was 134 on 07/18/2018) Renal insufficiency Personal history of other me dical treatment History of pathalogical L2 f racture DDD (degenerative disc disea se), cervical Personal history of other me dical treatment Pt with approximately 20% he ight loss and associated mild focal kyphosis CVA (cerebral vascular accident) (HCC) Per [facility] MR Imaging with and without contrast done 02/11/2018: Waters[place] acute infarcts involving both cerebral hemispheres, one of which enhances in the left frontal lobe Osteoarthritis SOB (shortness of breath) mild e xertional 2/2 known lung cancer. Uses Albuterol Inh PRN. Uses ~1x every 3 months Family History Medical History Relation Name Comments COPD Brother Chronic Obstruc tive Pulmonary Disease - (Added by TW Conv) Breast cancer Sister 1 Breast Cancer - (Added by TW Conv) Heart disease Sister 2 Heart Disease - (Added by TW Conv) Emphysema Sister 3 Emphysema - (Ad ded by TW Conv) Relation Name Status Comments Brother Sister 1 (Age 69 y/o) CHF Sister 2 Sister 3 Social History Tobacco Use Types Packs/Day Years Used Date Smoking Tobacco: Former Cigarettes 1 38 1 960 - 1998 Smokeless Tobacco: Never Tobacco Cessation:Counseling Given: Yes Alcohol Use Standard Drinks/Week Comments Yes 4 (1 standard drink = 0.6 oz pur e alcohol) AUDIT-C Answer Date Recorded Frequency of Alcohol Consumption Not on file 09/15/2024 Q2: How many drinks containi ng alcohol do you have on a typical day when you are drinking? 1 or 2 09/15/2024 Q3: How often do you have si x or more drinks on one occasion? Weekly 09/15/2024 Comments No Sex and Gender Information Value Date Recorded Sex Assigned at Not on file Legal Sex Female 12:23 AM INTERIOR DESIGN FACULTY MEMBER Gender Identity Not on file Sexual Orientation Not on file Obstetrics History Comments Post menopausal Last Filed Vital Signs Vital Sign Reading Time Taken Comments Blood Pressure 163/88 09/15/2024 10:38 AM CDT doctor notified Pulse 60 09/15/2024 10:38 AM CDT Temperature 36.7 C (98.1 F) 09/15/2024 10:38 AM CDT Respiratory Rate 18 09/15/2024 10:3 8 AM CDT Oxygen Saturation 98% 09/15/2024 10: 38 AM CDT Inhaled Oxygen Concentration - - Weight 47.2 kg (104 lb) 09/22/2024 10:1 9 AM CDT Height 142.2 cm (4' 8) 09/22/2024 10:1 9 AM CDT Body Mass Index 23.32 09/22/2024 10:19 AM CDT Plan of Treatment Health Maintenance Due Date Last Done Comments Depression Screening 1945 Osteoporosis Screening-Bone Density Scan 1945 DTaP/Tdap/Td Vaccine (1 - Tdap) 11/30/1954 Hepatitis B Screening 11/30/1961 Pneumococcal vaccine 65+ (1 of 2 - PCV) 11/30/1962 Zoster Vaccine (1 of 2) 11/30/1962 Well Visit 65+ 11/30/2008 Fall Risk Assessment 09/14/2021 09/14/2020 Covid-19 Vaccine (4 - 2023-2 5 season) 2023 01/24/2021, 05/02/2020, 03/31/2020 Influenza Vaccine (#1) 2024 , 11/20/2019, 12/12/2018, Additional history exists Medical Devices Implanted Type Area Salesforce Business Analyst Device Identifier Shelf Expiration Date Model / Serial / Lot Confidence Spinal Cement Implanted:Qty: 1 on 02/11/2018 by Jennifer Rosado MD at [facility] Bone Cement N/A: Spine Lumbar Depuy Spine [id number] / / Description:Confidence Spina l Cement Viper Prime Stylet Implanted:Qty: 2 on 02/11/2018 by Jennifer Rosado MD at [facility] Other - see comments N/A: Spine Lumbar Depuy Spine [id number] / / Description:Viper Prime Styl et Depuy Spine [id number] Viper 2 150mm Prebent Jamshid Spinal Titanium Nonsterile Mis - [id number] Implanted:Qty: 2 on 02/11/2018 by Jennifer Rosado MD at [facility] Other - see comments N/A: Spine Lumbar Depuy Spine [id number] / / Description:5.5 x 150 Viper Lordosed Rods 5 X 45 Viper Prime Fenestrated Screw Implanted:Qty: 2 on 02/11/2018 by Jennifer Rosado MD at [facility] Screw N/A: Spine Lumbar Depuy Spine [id number] / / 6 X 45 Viper Prime Fenestrated Screw Implanted:Qty: 6 on 02/11/2018 by Jennifer Rosado MD at [facility] Screw N/A: Spine Lumbar Depuy Spine [id number] / / Depuy Spine [id number] 5.5mm 1 Inner Spine Screw Set Titanium Nonsterile Viper - [id number] Implanted:Qty: 8 on 02/11/2018 by Jennifer Rosado MD at [facility] Screw N/A: Spine Lumbar Depuy Spine [id number] / / Description:Set Screw Fenestrated Screw Open Cannula Implanted:Qty: 1 on 02/11/2018 by Jennifer Rosado MD at [facility] Screw N/A: Spine Lumbar Depuy Spine [id number] / / Description:Fenestrated Scre w Open Cannula Filler Bone Void Acupac Advanced Frozen 10cc - [id number] - [id number] Implanted:Qty: 1 on 02/11/2018 by Jennifer Rosado MD at [facility] N/A: Spine Lumbar [employer] 12/30/2022 [id number] / [id number] / Filler Bone Void Acupac Advanced Frozen 10cc - [id number] - [id number] Implanted:Qty: 1 on 02/11/2018 by Jennifer Rosado MD at [facility] N/A: Spine Lumbar [employer] 12/30/2022 [id number] / [id number] / [place] Spine [id number] Oasys Occipito Cervico Thoracic Jamar Spinal - [id number] Implanted:Qty: 13 on 09/08/2018 by Jennifer Rosado MD at [facility] N/A: Spine Cervical [place] Spine [id number] / / Mare Spine [id number] 3.5mm 350mm Jamshid Spinal - [id number] Implanted:Qty: 1 on 09/08/2018 by Jennifer Rosado MD at [facility] N/A: Spine Cervical [place] Spine [id number] / / Gel 10cc Demineralized Bone Matrix - [id number] Implanted:Qty: 1 on 09/08/2018 by Jennifer Rosado MD at [facility] N/A: Spine Cervical Mare Spine 01/11/2021 [id number] / / [id number] Acuity [employer] Inc [id number] - [id number] - [id number] Implanted:Qty: 1 on 09/08/2018 by Jennifer Rosado MD at [facility] N/A: Spine Cervical [employer] 05/30/2023 [id number] / [id number] / Mare Spine [id number] Oasys 3.5mm 12mm Bias Angle Polyaxial Spine - [id number] Implanted:Qty: 1 on 09/08/2018 by Jennifer Rosado MD at [facility] N/A: Spine Cervical [place] Spine [id number] / / Mare Spine [id number] Oasys 3.5mm 14mm Bias Angle Polyaxial Spine - [id number] Implanted:Qty: 6 on 09/08/2018 by Jennifer Rosado MD at [facility] N/A: Spine Cervical Mare Spine [id number] / / Mare Spine [id number] Oasys 3.5mm 18mm Bias Angle Polyaxial Spine - [id number] Implanted:Qty: 1 on 09/08/2018 by Jennifer Rosado MD at [facility] N/A: Spine Cervical Mare Spine [id number] / / Mare Spine [id number] Oasys 3.5mm 22mm Bias Angle Polyaxial Spine - [id number] Implanted:Qty: 1 on 09/08/2018 by Jennifer Rosado MD at [facility] N/A: Spine Cervical [place] Spine [id number] / / [place] Spine [id number] Oasys 3.5mm 22mm Bias Angle Polyaxial Spine - [id number] Implanted:Qty: 4 on 09/08/2018 by Jennifer Rosado MD at [facility] N/A: Spine Cervical [place] Spine [id number] / / Lifenet [id number] Vivigen Allograft Graft 5 Cc Bone Cortical Cancellous; Deminerali - [id number] - [id number] Implanted:Qty: 1 on 09/14/2020 by Aldair Alejandro DDS at [facility] Bilateral: Maxilla Lifenet 07/20/2021 BL-[id number] / [id number] / Lifenet [id number]-[id number] Vivigen Allograft Graft 5 Cc Bone Cortical Cancellous; Deminerali - [id number] - [id number] Implanted:Qty: 1 on 09/14/2020 by Aldair Alejandro DDS at [facility] Bilateral: Mandible Lif[employer]et 07/20/2021 BL-1500-002 / [id number] / Acel[employer] Inc [id number] Alloderm 4x2cm Allograft Medium Graft Skin - [id number] Implanted:Qty: 1 on 09/14/2020 by Aldair Alejandro DDS at [facility] Left: Maxilla [employer]ergan [employer] 04/10/2022 [id number] / / [id number] Procedures Procedure Name Priority Date/Time Associated Diagnosis Comments XR SCOLIOSIS 6 OR MORE VIEWS Schedule Routine, Read Routine (OP Routine) 09/22/2024 9:53 AM CDT Lumbar pain Acute midline low back pain without sciatica EGFR Routine 09/15/2024 11:21 AM CDT Primary adenocarcinoma of upper lobe of left lung (HCC) DIFFERENTIAL AUTO Routine 09/15/2024 11:21 AM CDT Primary adenocarcinoma of upper lobe of left lung (HCC) CBC WITH AUTO DIFFERENTIAL Routine 09/15/2024 11:21 AM CDT Primary adenocarcinoma of upper lobe of left lung (HCC) COMPREHENSIVE METABOLIC PANEL Routine 09/15/2024 11:21 AM CDT Primary adenocarcinoma of upper lobe of left lung (HCC) CT CHEST W CONTRAST Schedule Routine, Read Routine (OP Routine) 09/08/2024 10:19 AM CDT Primary adenocarcinoma of upper lobe of left lung (HCC) Malignant neoplasm metastatic to bone (HCC) POCT CREATININE FOR CONTRAST EVALUATION Routine 09/08/2024 10:15 AM CDT from Last 3 Months Results * XR Scoliosis 6 or More Views (09/22/2024 9:53 AM CDT) Anatomical Region Laterality Modality Spine N/A Computed Radiogr aphy 09/22/2024 1:26 PM CDT Impressions 09/22/2024 10:02 PM CDT 1. Unchanged posterior spinal instrumented fusion from T12-L4 with fracture of both spinal rods. 2. Moderate residual long segment rotatory dextroscoliosis of the thoracolumbar spine with leftward coronal imbalance 3. Grade 2 spondylolisthesis at L5-S1 with severe degenerative disc disease at this level. 4. Unchanged vertebral plana at L2 Dictated by: Shaheed Adams MD The radiology attending physician has personally reviewed this study, and had reviewed and/or edited this written report and agrees with it. Electronically signed by: MD Servando Chairez 09/22/2024 10:02 PM CDT EXAMINATION: XR SCOLIOSIS 6 OR MORE VIEWS HISTORY: Scoliosis COMPARISON: CT chest abdomen pelvis dated 09/16/2023 FINDINGS: There are changes of posterior spinal instrumented fusion from C2-T2 as well as posterior spinal instrumented fusion from T12-L4 with cement augmentation from T12-L4. There is unchanged cement extravasation anterior to T11/T12 There is fracture of the right jamshid at the level of L2 and of the left jamshid at the level of L3, which is unchanged from the CT from 09/16/2023. There is moderate residual long segment dextroscoliosis of the thoracolumbar spine centered at T12. There is mild levocurvature of the upper thoracic spine. There is leftward coronal imbalance. There is no pelvic obliquity. There is no sagittal imbalance. There is grade 2 spondylolisthesis at L5-S1. There is a severe compression fracture with essentially vertebral plana at L2. Multilevel degenerative disc disease of the non-fused segments, greatest and severe at L5-S1. Procedure Note Sushma Molina MD - 09/22/2024 EXAMINATION: XR SCOLIOSIS 6 OR MORE VIEWS HISTORY: Scoliosis COMPARISON: CT chest abdomen pelvis dated 09/16/2023 FINDINGS: There are changes of posterior spinal instrumented fusion from C2-T2 as well as posterior spinal instrumented fusion from T12-L4 with cement augmentation from T12-L4. There is unchanged cement extravasation anterior to T11/T12 There is fracture of the right jamshid at the level of L2 and of the left jamshid at the level of L3, which is unchanged from the CT from 09/16/2023. There is moderate residual long segment dextroscoliosis of the thoracolumbar spine centered at T12. There is mild levocurvature of the upper thoracic spine. There is leftward coronal imbalance. There is no pelvic obliquity. There is no sagittal imbalance. There is grade 2 spondylolisthesis at L5-S1. There is a severe compression fracture with essentially vertebral plana at L2. Multilevel degenerative disc disease of the non-fused segments, greatest and severe at L5-S1. IMPRESSION: 1. Unchanged posterior spinal instrumented fusion from T12-L4 with fracture of both spinal rods. 2. Moderate residual long segment rotatory dextroscoliosis of the thoracolumbar spine with leftward coronal imbalance 3. Grade 2 spondylolisthesis at L5-S1 with severe degenerative disc disease at this level. 4. Unchanged vertebral plana at L2 Dictated by: Shaheed Adams MD The radiology attending physician has personally reviewed this study, and had reviewed and/or edited this written report and agrees with it. Electronically signed by: Marilyn Molina MD us Shaheed MENON IMG XR PROCEDURES Amanda l Result * eGFR (09/15/2024 11:21 AM CDT) eGFR >90 >=60 mL/min/1. 73 m2 Comment: Interpretive Data Reference Interval Normal >/= 90 mL/min/1.73m2 Mildly decreased* 60 - 89 mL/min/1.73m2 Mildly to moderately decreased 45 - 59 mL/min/1.73m2 Moderately to severely decreased 30 - 44 mL/min/1.73m2 Severely decreased 15 - 29 mL/min/1.73m2 Kidney Failure < 15 mL/min/1.73m2 *Relative to young adult level Estimated glomerular filtration rate is determined by the 2020 CKD-EPI equation recommended by the National Kidney Foundation (A Unifying Approach to GFR Estimation: Recommendations of the NKF-ASK Task Force on Reassessing the Inclusion of Race in Diagnosing Kidney Disease, JASN 2020). The CKD-EPI equation should not be used for patients with unstable renal function and has not been validated in children and those over 70. Current interpretive data was last reviewed 2020. Testing performed by: [address] [address] Blood 09/15/2024 11:2 1 AM CDT 09/15/2024 11:30 AM CDT us Conner Tipton MD PhD LAB BLOOD ORDERABLES Final Result [facility] [address] [facility] [place] [address] * Differential, auto (09/15/2024 11:21 AM CDT) Neutrophil abs 3.39 1.50 - 6.50 K/cumm Comment:Testing performed by : [address] [address] Imm gran abs 0.07 0.00 - 0.10 K/cumm [facility] Comment:Testing performed by : [address] [address] Lymphocyte abs 2.00 0.80 - 3.30 K/cumm [facility] Comment:Testing performed by : [address] [address] Monocyte abs 0.70 0.20 - 0.80 K/cumm [facility] Comment:Testing performed by : [address], [place]., [address] Eosinophil abs 0.17 0.00 - 0.50 K/cumm [facility] Comment:Testing performed by : [address], [place]., [address] Basophil abs 0.02 0.00 - 0.10 K/cumm [facility] Comment:Testing performed by : [address] [address] Neutrophil pct 53.4 % [facility] Comment: Interpretive Data Percent cell count reference ranges are not reported, since discordance with absolute values may lead to misinterpretation of CBC data. Current Interpretive Data was last revised on 2017. Testing performed by: [address] [address] Imm gran pct 1.1 % [facility] Comment: Interpretive Data Percent cell count reference ranges are not reported, since discordance with absolute values may lead to misinterpretation of CBC data. Current Interpretive Data was last revised on 2017. Testing performed by: [address] [address] Lymphocyte pct 31.5 % [facility] Comment: Interpretive Data Percent cell count reference ranges are not reported, since discordance with absolute values may lead to misinterpretation of CBC data. Current Interpretive Data was last revised on 2017. Testing performed by: [address] [address] Monocyte pct 11.0 % [facility] Comment: Interpretive Data Percent cell count reference ranges are not reported, since discordance with absolute values may lead to misinterpretation of CBC data. Current Interpretive Data was last revised on 2017. Testing performed by: [address] [address] Eosinophil pct 2.7 % [facility] Comment: Interpretive Data Percent cell count reference ranges are not reported, since discordance with absolute values may lead to misinterpretation of CBC data. Current Interpretive Data was last revised on 2017. Testing performed by: [address] [address] Basophil pct 0.3 % [facility] Comment: Interpretive Data Percent cell count reference ranges are not reported, since discordance with absolute values may lead to misinterpretation of CBC data. Current Interpretive Data was last revised on 2017. Testing performed by: [address] [address] Blood 09/15/2024 11:2 1 AM CDT 09/15/2024 11:30 AM CDT us Conner Tipton MD PhD LAB BLOOD ORDERABLES Final Result [facility] [id number] [facility] Department [place] [address] * (ABNORMAL) CBC with auto differential (09/15/2024 11:21 AM CDT) WBC 6.35 3.80 - 9.90 K/cumm Comment:Testing performed by : [address] [address] Hgb 11.9 11.9 - 15.5 g/dL [facility] Comment:Testing performed by : [address] [address] Hct 35.3(L) 35.6 - 45.5 % [facility] Comment:Testing performed by : [address] [address] Plt 210 150 - 400 K/cumm [facility] Comment:Testing performed by : [address] [address] MPV 8.6(L) 9.1 - 12.3 fL [facility] Comment:Testing performed by : [address] [address] RBC 4.09 3.90 - 5.20 M/cumm [facility] Comment:Testing performed by : [facility], [address] [place] [address]., [address] MCV 86.3 81.3 - 96.4 fL [facility] Comment:Testing performed by : [address] [address] MCH 29.1 27.1 - 33.3 pg [facility] Comment:Testing performed by : [address] [address] MCHC 33.7 32.3 - 35.7 g/dL [facility] Comment:Testing performed by : [address] [address] RDW CV 15.1(H) 11.1 - 14.9 % [facility] Comment:Testing performed by : [address] [address] RDW SD 47.9 35.7 - 48.1 fL [facility] Comment:Testing performed by : [address] [address] NRBC abs 0.00 0.00 - 0.01 K/cumm [facility] Comment:Testing performed by : [address] [address] ANC Prelim 3.39 1.50 - 6.50 K/cumm [facility] Comment: Interpretive Data The rapid ANC is a preliminary automated count and may vary from the final ANC (Neut Abs) reported in the WBC differential that follows. Current interpretive data was last revised 2024. Testing performed by: [address] [address] Blood 09/15/2024 11:2 1 AM CDT 09/15/2024 11:30 AM CDT us Conner Tipton MD PhD LAB BLOOD ORDERABLES Final Result [facility] [id number] [facility] Department [place] [address] * (ABNORMAL) Comprehensive metabolic panel (09/15/2024 11:21 AM CDT) [facility] Sodium 129(L) 135 - 145 mmol/L Comment:Testing performed by : [address] [address] Potassium, pl 5.1(H) 3.3 - 4.9 mmol/L [facility] Comment:Testing performed by : [address], [place]., [address] Chloride 93(L) 97 - 110 mmol/L [facility] Comment:Testing performed by : [address], [place]., [address] CO2 25 22 - 32 mmol/L [facility] Comment:Testing performed by : [address], [place]., [address] Anion gap 11 2 - 15 mmol/L [facility] Comment:Testing performed by : [address], [place]., [address] BUN 9 6 - 25 mg/dL [facility] Comment:Testing performed by : [address], [place]., [address] Creatinine 0.50(L) 0.60 - 1.10 mg/dL [facility] Comment:Testing performed by : [address] [address] Glucose 91 70 - 199 mg/dL [facility] Comment: Interpretive Data Fasting glucose >/= 126 mg/dl is diagnostic for diabetes. Fasting is defined as no caloric intake for at least 8 hours. Fasting glucose between 100 mg/dl to 125 mg/dl is diagnostic of prediabetes. In a patient with classic symptoms of hyperglycemia or hyperglycemic crisis, a random glucose >/= 200 mg/dl is diagnostic for diabetes. In the absence of unequivocal hyperglycemia, results should be confirmed by repeat testing. The classification and Diagnosis of Diabetes Diabetes Care 2021; 46: S19-S40. Current interpretive data was last revised 2022. Testing performed by: [address] [address] Calcium 9.6 8.5 - 10.3 mg/dL [facility] Comment:Testing performed by : [address] [address] Bilirubin, total 0.5 0.1 - 1.2 mg/dL [facility] Comment:Testing performed by : [facility], [address] [place] [address]., [address] Protein, pl 6.6 6.5 - 8.5 g/dL [facility] Comment:Testing performed by : [address] [address] Albumin 4.5 3.5 - 5.0 g/dL [facility] Comment:Testing performed by : [address] [address] Alk phos 78 40 - 130 Units/L [facility] Comment:Testing performed by : [address] [address] ALT 18 7 - 45 Units/L [facility] Comment:Testing performed by : [address] [address] AST 22 10 - 45 Units/L [facility] Comment:Testing performed by : [address] [address] Blood 09/15/2024 11:2 1 AM CDT 09/15/2024 11:30 AM CDT us Conner Tipton MD PhD LAB BLOOD ORDERABLES Final Result [facility] [id number] [facility] [place] [address] * CT chest with contrast (09/08/2024 10:19 AM CDT) Anatomical Region Laterality Modality Body N/A Computed Tomogra phy 09/14/2024 11:5 0 AM CDT Narrative 09/14/2024 12:45 PM CDT EXAM DESCRIPTION: CT CHEST W CONTRAST REASON FOR STUDY: Restaging lung ca Restaging lung ca, Primary adenocarcinoma of upper lobe of left lung (HCC), Malignant neoplasm metastatic to bone (HCC) TECHNIQUE: CT scan of the chest performed with intravenous contrast using helical scanning technique with dynamic intravenous contrast injection. Reconstructed coronal and sagittal MPR images reviewed. All images stored on PACS. Automated exposure control was used as a dose optimization technique for this examination. CONTRAST TYPE/DOSE: 100mL of IOVERSOL 350 MG IODINE/ML INTRAVENOUS SYRINGE injected via intravenous COMPARISON: CT chest abdomen pelvis 09/16/2023 FINDINGS: LUNGS: Moderate apical predominant emphysematous changes to the lungs. There is similar appearance of linear scarring in the posterior left upper lobe. In the right lower lobe medially there is a 1.3 x 0.9 cm solid nodule (series 3, image 69) which previously measured 1.3 x 0.8 cm. There is a calcified granuloma in the left lower lobe. No new pulmonary nodules appreciated. PLEURA: No effusion. No pneumothorax. MEDIASTINUM/JORGE: A 10 mm lymph node in the right hilum is unchanged. HEART: Heart size is normal with no pericardial effusion. There are aortic valvular calcifications. VASCULATURE: No thoracic aortic aneurysm. AXILLA: No adenopathy. CHEST WALL: No masses. No subcutaneous air. HARDWARE/LINES/TUBES: None. UPPER ABDOMEN: No significant abnormality. MUSCULOSKELETAL: There is no suspicious osseous lesion identified. There is an incompletely imaged cervicothoracic fusion hardware and thoracolumbar fusion hardware. OTHER: No other significant abnormality. IMPRESSION: 1. Similar appearance of a 1.3 cm solid nodule in the right lower lobe. No new pulmonary nodules appreciated. 2. Enlarged right hilar lymph node is unchanged. THIS IS AN ELECTRONICALLY VERIFIED FINAL REPORT 09/14/2024 12:45 PM - Electronically signed by Mehran Crawley M.D. AM: AM Report ID: [id number] Reading Location: [id number] Procedure Note Mehran Crawley MD - 09/14/2024 EXAM DESCRIPTION: CT CHEST W CONTRAST REASON FOR STUDY: Restaging lung ca Restaging lung ca, Primary adenocarcinoma of upper lobe of left lung(HCC), Malignant neoplasm metastatic to bone (HCC) TECHNIQUE: CT scan of the chest performed with intravenous contrast using helical scanning technique with dynamic intravenous contrast injection. Reconstructed coronal and sagittal MPR images reviewed. All images storedon PACS. Automated exposure control was used as a dose optimizationtechnique for this examination. CONTRAST TYPE/DOSE: 100mL of IOVERSOL 350 MG IODINE/ML INTRAVENOUS SYRINGE injected via intravenous COMPARISON: CT chest abdomen pelvis 09/16/2023 FINDINGS: LUNGS: Moderate apical predominant emphysematous changes to the lungs. There is similar appearance of linear scarring in the posteriorleft upper lobe. In the right lower lobe medially there is a 1.3 x 0.9 cmsolid nodule (series 3, image 69) which previously measured 1.3 x 0.8 cm. Thereis a calcified granuloma in the left lower lobe. No new pulmonary nodules appreciated. PLEURA: No effusion. No pneumothorax. MEDIASTINUM/JORGE: A 10 mm lymph node in the right hilum is unchanged. HEART: Heart size is normal with no pericardial effusion. There areaortic valvular calcifications. VASCULATURE: No thoracic aortic aneurysm. AXILLA: No adenopathy. CHEST WALL: No masses. No subcutaneous air. HARDWARE/LINES/TUBES: None. UPPER ABDOMEN: No significant abnormality. MUSCULOSKELETAL: There is no suspicious osseous lesion identified. Thereis an incompletely imaged cervicothoracic fusion hardware and thoracolumbar fusion hardware. OTHER: No other significant abnormality. IMPRESSION: 1. Similar appearance of a 1.3 cm solid nodule in the rightlower lobe. No new pulmonary nodules appreciated. 2. Enlarged right hilar lymph node is unchanged. THIS IS AN ELECTRONICALLY VERIFIED FINAL REPORT 09/14/2024 12:45 PM - Electronically signed by Mehran Crawley M.D. AM: AM Report ID: [id number] Reading Location: [id number] Conner Tipton MD PhD IMG CT PROCEDURES Fin al Result * POCT creatinine for contrast evaluation (09/08/2024 10:15 AM CDT) Creatinine POC 0.60 0.60 - 1.10 mg/dL Comment:Testing performed by : [facility], [address] [place] [address], [place]., [address] Blood 09/08/2024 10:1 5 AM CDT 09/08/2024 10:15 AM CDT Gunnar Maharaj MD POINT OF CARE TEST ORDERABLES Final Result [facility] [id number] [facility] [place] [address] from Last 3 Months Insurance MEDICARE [employer] MEDICARE SUPPLEMENT MEDICARE [facility] MEDICARE MEDICARE 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 * Full Code (Latest Code Status on File) Date Activated Date Inactivated Comments 09/08/2018 3:21 PM 09/10/2018 8:48 PM * Full Code Date Activated Date Inactivated Comments 02/12/2018 3:32 AM 02/14/2018 7:38 PM * Full Code Date Activated Date Inactivated Comments 02/11/2018 2:01 AM 02/12/2018 3:32 AM Healthcare Agents on File Name Relationship Healthcare Agent [facility] Communication Nata Espinosa Health Care Agent Care Teams Beer Merchant Relationship Specialty Start Date End Date Mark Henriquez MD PCP - General Family Medicine 11/17/21 Mark Henriquez MD 03/12/19 Balaji Cerrato MD [address] [address] Consulting Physician Vascular Surgery 01/10/18 Cesar Fan MD [address] [place] [address] Consulting Physician Radiation Oncology 01/10/18 Jennifer Rosado MD [address] [address] Consulting Physician Neurosurgery 06/19/18 Spike Marrero, DMD [address] [place] [address] Dentist Oral Surgery 05/23/20 Aldair Alejandro DDS [address] [facility] [address] [place] [address] Dentist Oral Surgery 05/27/20 Conner Tipton MD PhD [address] [place] [address] MEDICAL ONCOLOGY, [facility] [address] [place] [address] Consulting Physician Medical Oncology 02/15/22
[2024-09-28 20:09] LABS: Anion Gap 7 mmol/L (4-12); Blood Urea Nitrogen 10 mg/dL (7-17); Calcium 9.7 mg/dL (8.4-10.2); Carbon Dioxide 27 mmol/L (22-30); Chloride 95 mmol/L (98-107); Cholesterol 266 mg/dL (0-200); Estimated Glomerular Filt Rate > 60; Glucose 78 mg/dL (65-110); HDL Direct 70 mg/dL; Potassium 4.6 mmol/L (3.4-5.0); Sodium 129 mmol/L (137-145); Triglycerides 109 mg/dL (<150)
[2024-09-28 20:45] LABS: Thyroid Stimulating Hormone 0.135 uIU/mL (0.465-4.680)
== END 2024-09-28 12:35 | disposition home or self-care (01) ==
LOC: ANHGOSHLAB 12:35
PROVIDERS: PCP Family Medicine; Visit Provider Family Medicine
DX: E03.9 Hypothyroidism, unspecified (principal); I10 Essential (primary) hypertension; E87.5 Hyperkalemia
CPT/HCPCS: 36415; 80048; 80061; 84443